=== PATIENT | female | born 1960 | race Caucasian/White ===

== ENCOUNTER 2017-06-18 00:08 | Inpatient (IN) | payer BC, MEDICARE ==
[~2017-06-18] VITALS: Ht 162.6 cm; Wt 50.3 kg
[~2017-06-18 00:08] MED LIST: ALEN70; ASCO250CH PO; AZIT250 PO; CALCA500CH PO; CALCAVITDA PO; CARB50; CEFD300 PO; CEPH500 PO; CIPR250 PO; DARIFENACIN 15 MG; DARIFENACIN 7.5 MG; ENABLEX PO; FAMO20; GABA100; GABA100 PO; GABA400 PO; HYDSUL200; IRON150C PO; LEVFLO250 PO; LEVSOD25 PO; LEVSOD50 PO; MELO7.5; MELO7.5 PO; METTREX2.5; METTREX2.5 PO; MIRT30 PO; MULVITMIND; MULVITMIND PO; NITR100; NITR100 PO; OMEPRAZOLE MAGN20 MG PO; OXYB5; OXYC10ER PO; OXYC20ER; OXYC20ER PO; OXYC5 PO; PANT40 PO; STOMUL; VITAMIN D
[2017-06-18 00:30] LABS: Source, Urine Clean Catch
[2017-06-18] MEDS ORDERED: CEPH250A PO (00:32)
[2017-06-18 00:33] LABS: Bilirubin, Urine Neg (Neg); Blood, Urine 5+ (Neg); Glucose Qualitative, Urine Neg (Neg); Ketones, Urine Neg (Neg); Leukocyte Esterase, Urine 3+ (Neg); Nitrite, Urine Neg (Neg); Protein, Urine 2+ (Neg); Urobilinogen, Urine NORM (Normal)
[2017-06-18] MEDS ORDERED: DARIFENACIN ER7.5 MG PO (00:36)
[2017-06-18 00:38] LABS: Appearance, Urine Cloudy (Clear); Color, Urine Yellow (P-Yellow)
[2017-06-18 00:39] LABS: Bacteria Many /hpf; Squamous Epithelial Cells Few /hpf (Few); White Blood Cells, Urine TNTC /hpf (0-5)
[2017-06-18 01:07] LABS: BASOPHILS ABSOLUTE AUTO 0.02 K/mm3 (0.00-0.23); BASOPHILS PERCENT AUTO 0 % (0-2); EOSINOPHILS PERCENT AUTO 0 % (0-6); Hematocrit 38.4 % (33.0-51.0); Hemoglobin 12.4 g/dL (11.5-16.0); IMMATURE GRAN ABSOLUTE AUTO 0.08 K/mm3 (0.00-0.10); IMMATURE GRAN PERCENT AUTO 1 % (0-1); LYMPHOCYTES ABSOLUTE AUTO 0.28 K/mm3 (0.84-5.20); LYMPHOCYTES PERCENT AUTO 2 % (21-46); MONOCYTES PERCENT AUTO 5 % (4-13); Mean Corpuscular HGB 31.2 pg (26.0-34.0); Mean Corpuscular HGB Conc 32.3 g/dL (31.5-36.5); Mean Corpuscular Volume 97 fL (80-100); Mean Platelet Volume 11.7 fL (9.1-12.4); NEUTROPHILS ABSOLUTE AUTO 14.83 K/mm3 (1.96-9.15); NEUTROPHILS PERCENT AUTO 93 % (41-73); Platelet Count 154 K/mm3 (150-400); RDW Coefficient Variation 13.4 % (11.7-14.2); RDW Standard Deviation 47.6 fL (35.1-46.3); Red Blood Cell Count 3.98 M/mm3 (3.80-5.20); White Blood Cell Count 16.01 K/mm3 (4.00-11.30)
[2017-06-18 01:25] LABS: Albumin, Blood 2.9 g/dL (3.4-5.0); Albumin/Globulin Ratio 0.7 (0.8-1.8); Bilirubin, Total 0.6 mg/dL (0.1-1.0); Bun/Creatinine Ratio 21.3 (12.0-20.0); Calcium, Blood 8.6 mg/dL (8.5-10.1); Creatinine, Blood 1.55 mg/dL (0.40-1.00); Globulin, Blood 4.2 g/dL (2.2-4.0); Potassium, Blood 4.4 mmol/L (3.5-5.5); Total Protein, Blood 7.1 g/dL (6.4-8.2)
[2017-06-18] MEDS ORDERED: OXYC5 PO (03:32)
[2017-06-18] MEDS ORDERED: ASCO500 PO (03:33)
[2017-06-18] MEDS ORDERED: CHOL10002 PO (03:34)
[2017-06-18] MEDS ORDERED: BONE ESSENT166.75 MG PO (03:36)
[2017-06-18] MEDS ORDERED: Multivitamin1 EAC1 PO (03:38)
[2017-06-18 04:58] LABS: BASOPHILS ABSOLUTE AUTO 0.03 K/mm3 (0.00-0.23); BASOPHILS PERCENT AUTO 0 % (0-2); EOSINOPHILS PERCENT AUTO 0 % (0-6); Hematocrit 35.4 % (33.0-51.0); Hemoglobin 11.2 g/dL (11.5-16.0); IMMATURE GRAN ABSOLUTE AUTO 0.06 K/mm3 (0.00-0.10); IMMATURE GRAN PERCENT AUTO 1 % (0-1); LYMPHOCYTES ABSOLUTE AUTO 0.34 K/mm3 (0.84-5.20); LYMPHOCYTES PERCENT AUTO 3 % (21-46); MONOCYTES ABSOLUTE AUTO 0.73 K/mm3 (0.16-1.47); MONOCYTES PERCENT AUTO 6 % (4-13); Mean Corpuscular HGB 31.2 pg (26.0-34.0); Mean Corpuscular HGB Conc 31.6 g/dL (31.5-36.5); Mean Corpuscular Volume 99 fL (80-100); Mean Platelet Volume 11.9 fL (9.1-12.4); NEUTROPHILS PERCENT AUTO 91 % (41-73); Platelet Count 125 K/mm3 (150-400); RDW Coefficient Variation 13.6 % (11.7-14.2); RDW Standard Deviation 48.7 fL (35.1-46.3); Red Blood Cell Count 3.59 M/mm3 (3.80-5.20); White Blood Cell Count 12.86 K/mm3 (4.00-11.30)
[2017-06-18 05:17] LABS: Bun/Creatinine Ratio 19.6 (12.0-20.0); Calcium, Blood 7.7 mg/dL (8.5-10.1); Creatinine, Blood 1.53 mg/dL (0.40-1.00); Potassium, Blood 4.3 mmol/L (3.5-5.5)
[2017-06-20 04:20] LABS: Hematocrit 31.6 % (33.0-51.0); Hemoglobin 9.8 g/dL (11.5-16.0); Mean Corpuscular HGB 30.9 pg (26.0-34.0); Mean Corpuscular Volume 100 fL (80-100); Mean Platelet Volume 12.3 fL (9.1-12.4); Platelet Count 79 K/mm3 (150-400); RDW Coefficient Variation 14.6 % (11.7-14.2); RDW Standard Deviation 52.9 fL (35.1-46.3); Red Blood Cell Count 3.17 M/mm3 (3.80-5.20); White Blood Cell Count 7.37 K/mm3 (4.00-11.30)
[2017-06-20 04:40] LABS: Bun/Creatinine Ratio 18.5 (12.0-20.0); Calcium, Blood 6.2 mg/dL (8.5-10.1); Creatinine, Blood 1.19 mg/dL (0.40-1.00); Potassium, Blood 4.2 mmol/L (3.5-5.5)
[2017-06-21 12:48] LABS: BASOPHILS ABSOLUTE AUTO 0.01 K/mm3 (0.00-0.23); BASOPHILS PERCENT AUTO 0 % (0-2); EOSINOPHILS ABSOLUTE AUTO 0.03 K/mm3 (0.00-0.68); EOSINOPHILS PERCENT AUTO 0 % (0-6); Hematocrit 31.9 % (33.0-51.0); Hemoglobin 9.9 g/dL (11.5-16.0); IMMATURE GRAN ABSOLUTE AUTO 0.04 K/mm3 (0.00-0.10); IMMATURE GRAN PERCENT AUTO 1 % (0-1); LYMPHOCYTES ABSOLUTE AUTO 0.25 K/mm3 (0.84-5.20); LYMPHOCYTES PERCENT AUTO 4 % (21-46); MONOCYTES ABSOLUTE AUTO 0.34 K/mm3 (0.16-1.47); MONOCYTES PERCENT AUTO 5 % (4-13); Mean Corpuscular HGB 31.5 pg (26.0-34.0); Mean Corpuscular Volume 102 fL (80-100); NEUTROPHILS ABSOLUTE AUTO 6.28 K/mm3 (1.96-9.15); NEUTROPHILS PERCENT AUTO 90 % (41-73); Platelet Count 86 K/mm3 (150-400); RDW Coefficient Variation 15.4 % (11.7-14.2); RDW Standard Deviation 56.4 fL (35.1-46.3); Red Blood Cell Count 3.14 M/mm3 (3.80-5.20); White Blood Cell Count 6.95 K/mm3 (4.00-11.30)
[2017-06-21 13:28] LABS: Bun/Creatinine Ratio 14.7 (12.0-20.0); Calcium, Blood 7.4 mg/dL (8.5-10.1); Creatinine, Blood 1.29 mg/dL (0.40-1.00)
[2017-06-22] MEDS ORDERED: CEFU500T30 PO (13:07)
== END 2017-06-22 15:18 | disposition home or self-care (01) | DRG 698 ==
LOC: ER 00:08 → ICUE 02:20 → ICUW 02:20 → PCU 02:20 → ICUE 02:44 → PCU 06-19 11:56
PROVIDERS: Emergency Medicine; Family Medicine; Internal Medicine; Physician Assistant
DX: T83.511A Infection and inflammatory reaction due to indwelling urethral catheter, initial encounter (principal); A41.9 Sepsis, unspecified organism; G82.50 Quadriplegia, unspecified; G93.40 Encephalopathy, unspecified; N17.9 Acute kidney failure, unspecified; N39.0 Urinary tract infection, site not specified; B96.4 Proteus (mirabilis) (morganii) as the cause of diseases classified elsewhere; M06.9 Rheumatoid arthritis, unspecified; Z88.1 Allergy status to other antibiotic agents; Z88.5 Allergy status to narcotic agent; Z88.0 Allergy status to penicillin; Z88.2 Allergy status to sulfonamides; Z88.8 Allergy status to other drugs, medicaments and biological substances; Z79.899 Other long term (current) drug therapy
CPT/HCPCS: 31720; 36415; 51702; 71045; 80048; 80053; 81001; 83605; 85025; 85027; 87040; 87077; 87081; 87086; 87186; 93005; 93010; 94762; 96360; 99285; J0610; J0696; J1650; J7030; J8610

== ENCOUNTER → 2017-06-29 | Outpatient (CLI) | payer BC ==
[~2017-06-29] MED LIST changes: +ASCO500 PO; +BONE ESSENT166.75 MG PO; +CEFU500T30 PO; +CEPH250A PO; +CHOL10002 PO; +DARIFENACIN ER7.5 MG PO; +Multivitamin1 EAC1 PO
[2017-06-29 11:22] LABS: Source, Urine Clean Catch
[2017-06-29 13:45] LABS: Bilirubin, Urine Neg (Neg); Blood, Urine 4+ (Neg); Glucose Qualitative, Urine Neg (Neg); Ketones, Urine Neg (Neg); Leukocyte Esterase, Urine 3+ (Neg); Nitrite, Urine Neg (Neg); Protein, Urine 1+ (Neg); Urobilinogen, Urine NORM (Normal)
[2017-06-29 14:10] LABS: Appearance, Urine Hazy (Clear); Color, Urine Yellow (P-Yellow)
[2017-06-29 14:11] LABS: Bacteria Many /hpf; Squamous Epithelial Cells Few /hpf (Few); White Blood Cells, Urine 50-100 /hpf (0-5)
== END | disposition home or self-care (01) ==
LOC: LAB SHORT 10:08 → LAB 10:08 → EDSTATUS 06-18 10:50 → LAB FUT 06-18 10:50
PROVIDERS: Internal Medicine
DX: N39.0 Urinary tract infection, site not specified (principal)
CPT/HCPCS: 81001; 87077; 87086; 87186

== ENCOUNTER → 2017-07-14 | Outpatient (CLI) | payer BC ==
[2017-07-14 13:34] LABS: Appearance, Urine Hazy (Clear); Bilirubin, Urine Neg (Neg); Blood, Urine 2+ (Neg); Color, Urine Yellow (P-Yellow); Glucose Qualitative, Urine Neg (Neg); Ketones, Urine Neg (Neg); Leukocyte Esterase, Urine 3+ (Neg); Nitrite, Urine Neg (Neg); Protein, Urine 2+ (Neg); Urobilinogen, Urine NORM (Normal); pH, Urine 6.5 (5.0-8.0)
[2017-07-14 13:51] LABS: Bacteria Mod /hpf; Squamous Epithelial Cells Rare /hpf (Few); White Blood Cells, Urine TNTC /hpf (0-5)
== END ==
LOC: LAB 11:16 → LAB SHORT 11:16
PROVIDERS: Internal Medicine
DX: N39.0 Urinary tract infection, site not specified (principal)
CPT/HCPCS: 81001; 87086

== ENCOUNTER → 2017-09-15 | Outpatient (CLI) | payer BC ==
[2017-09-15 17:39] LABS: Appearance, Urine Hazy (Clear); Bilirubin, Urine Neg (Neg); Blood, Urine 3+ (Neg); Color, Urine Yellow (P-Yellow); Glucose Qualitative, Urine Neg (Neg); Ketones, Urine Neg (Neg); Leukocyte Esterase, Urine 3+ (Neg); Nitrite, Urine Neg (Neg); Protein, Urine 2+ (Neg); Urobilinogen, Urine NORM (Normal)
[2017-09-15 18:19] LABS: Red Blood Cells, Urine 50-100 /hpf (0-2); White Blood Cells, Urine 50-100 /hpf (0-5)
[2017-09-15 18:20] LABS: Bacteria Mod /hpf; Squamous Epithelial Cells Not Seen /hpf (Few)
== END | disposition home or self-care (01) ==
LOC: LAB SRC 13:44 → LAB SHORT 13:44
PROVIDERS: Internal Medicine
DX: N39.0 Urinary tract infection, site not specified (principal)
CPT/HCPCS: 81001; 87077; 87086; 87186

== ENCOUNTER 2017-09-23 07:13 | Day surgery (SDC) | payer BC ==
[~2017-09-23] VITALS: Ht 165.1 cm; Wt 45.4 kg
== END 2017-09-23 22:43 | disposition home or self-care (01) ==
LOC: ORSCMMR 07:13 → ORD 09:00 → ORSCMMR 09:00 → ORD 10:00 → ORSCMMR 22:43
PROVIDERS: Obstetrics & Gynecology
PROC: 0UB24ZZ Excision of Bilateral Ovaries, Percutaneous Endoscopic Approach (ICD-10-PCS; principal; 2017-09-23 10:30)
PROC: 0UB74ZZ Excision of Bilateral Fallopian Tubes, Percutaneous Endoscopic Approach (ICD-10-PCS; principal; 2017-09-23 10:30)
DX: Z15.01 Genetic susceptibility to malignant neoplasm of breast (principal); Z12.4 Encounter for screening for malignant neoplasm of cervix; G82.50 Quadriplegia, unspecified; Z93.0 Tracheostomy status; Z79.899 Other long term (current) drug therapy
CPT/HCPCS: 87624; 88305; G0123; J1100; J2250; J2310; J2405; J3010; J7120

== ENCOUNTER → 2017-11-10 | Outpatient (CLI) | payer BC ==
[2017-11-10 17:35] LABS: Appearance, Urine Hazy (Clear); Bilirubin, Urine Neg (Neg); Blood, Urine 5+ (Neg); Color, Urine Yellow (P-Yellow); Glucose Qualitative, Urine Neg (Neg); Ketones, Urine Neg (Neg); Leukocyte Esterase, Urine 3+ (Neg); Nitrite, Urine Neg (Neg); Protein, Urine 2+ (Neg); Specific Gravity, Urine 1.005 (1.003-1.022); Urobilinogen, Urine NORM (Normal)
[2017-11-10 17:46] LABS: White Blood Cells, Urine TNTC /hpf (0-5)
[2017-11-10 17:48] LABS: Bacteria Many /hpf; Red Blood Cells, Urine 25-50 /hpf (0-2); Squamous Epithelial Cells Few /hpf (Few)
== END | disposition home or self-care (01) ==
LOC: LAB SHORT 13:59 → LAB SRC 13:59
PROVIDERS: Internal Medicine
DX: N39.0 Urinary tract infection, site not specified (principal)
CPT/HCPCS: 81001; 87077; 87086; 87186

== ENCOUNTER → 2017-12-27 | Outpatient (CLI) | payer BC ==
[2017-12-27 15:29] LABS: Source, Urine Clean Catch
[2017-12-27 17:22] LABS: Bilirubin, Urine Neg (Neg); Blood, Urine 2+ (Neg); Glucose Qualitative, Urine Neg (Neg); Ketones, Urine Neg (Neg); Leukocyte Esterase, Urine 3+ (Neg); Nitrite, Urine Pos (Neg); Protein, Urine 2+ (Neg); Urobilinogen, Urine NORM (Normal)
[2017-12-27 17:49] LABS: Appearance, Urine Cloudy (Clear); Color, Urine Yellow (P-Yellow)
[2017-12-27 17:50] LABS: White Blood Cells, Urine TNTC /hpf (0-5)
[2017-12-27 17:51] LABS: Bacteria Many /hpf; Squamous Epithelial Cells Not Seen /hpf (Few)
== END | disposition home or self-care (01) ==
LOC: LAB SRC 15:26 → LAB SHORT 15:26
PROVIDERS: Internal Medicine
DX: N39.0 Urinary tract infection, site not specified (principal)
CPT/HCPCS: 81001; 87077; 87086; 87186

== ENCOUNTER → 2018-02-01 | Outpatient (CLI) | payer BC ==
[2018-02-01 17:51] LABS: Appearance, Urine Cloudy (Clear); Bilirubin, Urine Neg (Neg); Blood, Urine 4+ (Neg); Color, Urine Yellow (P-Yellow); Glucose Qualitative, Urine Neg (Neg); Ketones, Urine Neg (Neg); Leukocyte Esterase, Urine 3+ (Neg); Nitrite, Urine Pos (Neg); Protein, Urine 2+ (Neg); Specific Gravity, Urine 1.015 (1.003-1.022); Urobilinogen, Urine NORM (Normal)
[2018-02-01 18:47] LABS: Triple Phosphate Crystals Few /hpf; White Blood Cells, Urine TNTC /hpf (0-5)
[2018-02-01 18:48] LABS: Red Blood Cells, Urine 25-50 /hpf (0-2)
[2018-02-01 18:50] LABS: Bacteria Many /hpf; Squamous Epithelial Cells Rare /hpf (Few)
== END | disposition home or self-care (01) ==
LOC: LAB SRC 13:01 → LAB SHORT 13:01 → LAB FUT 01-31 16:45 → EDSTATUS 01-31 16:45
PROVIDERS: Internal Medicine
DX: N39.0 Urinary tract infection, site not specified (principal)
CPT/HCPCS: 81001; 87077; 87086; 87186

== ENCOUNTER → 2018-03-05 | Outpatient (CLI) | payer BC ==
[2018-03-12 07:12] LABS: BRUSHITE 1.84 ratio (0.00-3.00); CALCIUM OXALATE 4.78 ratio (0.00-6.00); CALCIUM, URINE 35.2 mg/24 hr (100.0-300.0); CALCIUM, URINE 4.4 mg/dL (Not Estab.); CHLORIDE URINE 34 (110-250); CITRIC ACID (CITRATE) 291 mg/L (Not Estab.); CITRIC ACID(CITRATE) 233 mg/24 hr (320-1240); CREATININE, URINE 353.6 mg/24 hr (800.0-1800.0); CREATININE, URINE 44.2 mg/dL (Not Estab.); MAGNESIUM, URINE 10.2 mg/dL (Not Estab.); OSMOLALITY, URINE 400 (300-900); SODIUM, URINE 68 (39-258); SODIUM, URINE 85 mmol/L (Not Estab.); STRUVITE 0.17 ratio (0.00-1.00); URIC ACID 0.14 ratio (0.00-1.20); URINE VOLUME 800 mL/24 hr (600-1600); URINE VOLUME (PRESERVATIVE) 800 mL/24 hr (600-1600)
== END | disposition home or self-care (01) ==
LOC: LAB 05:00 → LAB SHORT 05:00
PROVIDERS: Urology
DX: N20.0 Calculus of kidney (principal)
CPT/HCPCS: 81003; 81050; 82131; 82140; 82340; 82436; 82507; 82570; 83735; 83935; 83945; 84105; 84133; 84300; 84392; 84560

== ENCOUNTER → 2018-05-31 | Outpatient (CLI) | payer BC ==
[2018-05-31 18:16] LABS: Bilirubin, Urine Neg (Neg); Blood, Urine 2+ (Neg); Glucose Qualitative, Urine Neg (Neg); Ketones, Urine Neg (Neg); Leukocyte Esterase, Urine 3+ (Neg); Nitrite, Urine Neg (Neg); Protein, Urine 2+ (Neg); Urobilinogen, Urine NORM (Normal)
[2018-05-31 18:35] LABS: Appearance, Urine Hazy (Clear); Color, Urine Yellow (P-Yellow)
[2018-05-31 18:36] LABS: Bacteria Many /hpf; Squamous Epithelial Cells Not Seen /hpf (Few); White Blood Cells, Urine TNTC /hpf (0-5)
== END | disposition home or self-care (01) ==
LOC: LAB SRC 13:03 → LAB SHORT 13:03 → EDSTATUS 05-30 12:15 → LAB FUT 05-30 12:15
PROVIDERS: Internal Medicine
DX: N39.0 Urinary tract infection, site not specified (principal)
CPT/HCPCS: 81001; 87077; 87086; 87186

== ENCOUNTER 2018-07-14 10:10 | Day surgery (SDC) | payer BC ==
[~2018-07-14] VITALS: Ht 165.1 cm; Wt 45.4 kg
[~2018-07-14 10:10] MED LIST changes: +Mobic15 MG PO
--- NOTE | 2018-07-14 12:23 | NUR ---
07/14/18 1223 Kady Nelson PT REFUSES FLUIDS.
== END 2018-07-14 12:56 | disposition home or self-care (01) ==
LOC: ORSCSDS 10:10
PROVIDERS: Internal Medicine Gastroenterology
PROC: 0DJD8ZZ Inspection of Lower Intestinal Tract, Via Natural or Artificial Opening Endoscopic (ICD-10-PCS; principal; 2018-07-14 11:30)
DX: Z12.11 Encounter for screening for malignant neoplasm of colon (principal); Z80.0 Family history of malignant neoplasm of digestive organs; E03.9 Hypothyroidism, unspecified; G82.53 Quadriplegia, C5-C7 complete; J47.9 Bronchiectasis, uncomplicated; M06.9 Rheumatoid arthritis, unspecified; Z79.899 Other long term (current) drug therapy
CPT/HCPCS: J2704; J7120

== ENCOUNTER 2019-03-04 12:39 | Inpatient (IN) | payer BC, MEDICARE ==
[~2019-03-04] VITALS: Ht 147.3 cm; Wt 48.5 kg
[2019-03-04 13:46] LABS: BASOPHILS ABSOLUTE AUTO 0.03 K/mm3 (0.00-0.23); BASOPHILS PERCENT AUTO 0 % (0-2); EOSINOPHILS ABSOLUTE AUTO 0.21 K/mm3 (0.00-0.68); EOSINOPHILS PERCENT AUTO 3 % (0-6); Hematocrit 35.4 % (33.0-51.0); IMMATURE GRAN ABSOLUTE AUTO 0.03 K/mm3 (0.00-0.10); IMMATURE GRAN PERCENT AUTO 0 % (0-1); LYMPHOCYTES ABSOLUTE AUTO 0.56 K/mm3 (0.84-5.20); LYMPHOCYTES PERCENT AUTO 8 % (21-46); MONOCYTES ABSOLUTE AUTO 0.21 K/mm3 (0.16-1.47); MONOCYTES PERCENT AUTO 3 % (4-13); Mean Corpuscular HGB 31.9 pg (26.0-34.0); Mean Corpuscular HGB Conc 31.1 g/dL (31.5-36.5); Mean Corpuscular Volume 103 fL (80-100); Mean Platelet Volume 11.7 fL (9.1-12.4); NEUTROPHILS ABSOLUTE AUTO 6.38 K/mm3 (1.96-9.15); NEUTROPHILS PERCENT AUTO 86 % (41-73); Platelet Count 87 K/mm3 (150-400); RDW Coefficient Variation 13.1 % (11.7-14.2); RDW Standard Deviation 48.5 fL (35.1-46.3); Red Blood Cell Count 3.45 M/mm3 (3.80-5.20); White Blood Cell Count 7.42 K/mm3 (4.00-11.30)
[2019-03-04] MEDS ORDERED: Enablex7.5 MG PO (14:10)
[2019-03-04 14:14] LABS: Albumin, Blood 3.1 g/dL (3.4-5.0); Albumin/Globulin Ratio 0.9 (0.8-1.8); Bilirubin, Total 0.5 mg/dL (0.1-1.0); Bun/Creatinine Ratio 18.3 (12.0-20.0); Calcium, Blood 16.2 mg/dL (8.5-10.1); Creatinine, Blood 2.73 mg/dL (0.40-1.00); Globulin, Blood 3.3 g/dL (2.2-4.0); Potassium, Blood 4.3 mmol/L (3.5-5.5); Total Protein, Blood 6.4 g/dL (6.4-8.2)
[2019-03-04 16:33] LABS: Phosphorus, Blood 2.1 mg/dL (2.5-4.9); Thyroid Stimulating Hormone 1.29 uIU/mL (0.360-4.800); Uric Acid, Blood 5.2 mg/dL (2.6-6.0)
[2019-03-04 18:19] LABS: Albumin, Blood 1.7 g/dL (3.4-5.0); Anion Gap 6 mmol/L (6-16); Blood Urea Nitrogen 34 mg/dL (8-24); CO2, Blood 22 mmol/L (21-32); Chloride, Blood 120 mmol/L (98-108); Glomerular Filtration Rate 33 (60-); Glucose, Blood 63 mg/dL (70-99); Phosphorus, Blood 2.2 mg/dL (2.5-4.9); Potassium, Blood 2.8 mmol/L (3.5-5.5); Sodium, Blood 148 mmol/L (136-145)
[2019-03-04 18:26] LABS: Source, Urine Catheter
[2019-03-04 18:31] LABS: Appearance, Urine Hazy (Clear); Bilirubin, Urine Neg (Neg); Blood, Urine 1+ (Neg); Color, Urine Yellow (P-Yellow); Glucose Qualitative, Urine Neg (Neg); Ketones, Urine Neg (Neg); Leukocyte Esterase, Urine 3+ (Neg); Nitrite, Urine Neg (Neg); Protein, Urine 1+ (Neg); Urobilinogen, Urine NORM (Normal)
[2019-03-04 18:54] LABS: White Blood Cells, Urine 50-100 /hpf (0-5)
[2019-03-04 18:55] LABS: Bacteria Many /hpf; Squamous Epithelial Cells Few /hpf (Few)
[2019-03-04 19:51] LABS: Calcium, Blood 8.7 mg/dL (8.5-10.1)
--- NOTE | 2019-03-04 22:46 | NUR ---
ASSUMED CARE OF PATIENT AT APPROXIMATELY 1915 FROM KRIS Kulkarni RN. PATIENT ALERT AND ORIENTED X4; SLOW TO RESPOND; PARAPALEGIC; CONTRACTED; Q2H TURNS; CHAIRFAST. PATIENT REPORTS CHRONIC PAIN; CALLED DR. MCDUFFIE THREE TIMES TO REPORTS PATIENT AND PATIENT'S SPOUSE REQUEST FOR HOME DOSE OF OXYCODONE. PATIENT TAKES REPORTEDLY 20MG OF OXYCODONE Q8; 5MG OF OXCODONE ORDERED Q4; ORDERS RECIEVED. PATIENT TAKES PILLS WHOLE WITH WATER. TRACH IN PLACE; PATIENT SPOUSE DOES TRACH CARE. NSR ON TELE; OXYGEN SATURATION ABOVE 90% ON ROOM AIR. URINARY CATHETER DRAINING CLEAR YELLOW URINE. IVF INFUSING PER ORDER. PATIENT DENIES NAUSEA OR DIZZINESS. GROSS MOVEMENT IN UPPER EXTREMITIES. PATIENT CURRENTLY RESTING IN BED; CALL LIGHT IN REACH; BED IN LOWEST POSISTION; WILL CONTINUE TO MONITOR AND ASSESS UNTIL END OF SHIFT.
--- NOTE | 2019-03-04 23:20 | NUR ---
PATIENT SBP 80'S; MAP 65; PATIENT REPORTS BLOOD PRESSURE NORMALLY IN 80-90'S SBP. WILL CONTINUE TO MONITOR AND ASSESS UNTIL END OF SHIFT.
--- NOTE | 2019-03-04 23:46 | NUR ---
PATIENT TRANSFERRED FROM [facility] TO [facility] ROOM WITH A LIFT; PATIENT MOVED FROM STRETCHER TO AIR MATTRESS; ALL BELONGINGS MOVED. PATIENT'S SPOUSE IN ROOM DURING MOVE.
[2019-03-05 04:05] LABS: BASOPHILS ABSOLUTE AUTO 0.02 K/mm3 (0.00-0.23); BASOPHILS PERCENT AUTO 1 % (0-2); EOSINOPHILS ABSOLUTE AUTO 0.21 K/mm3 (0.00-0.68); EOSINOPHILS PERCENT AUTO 5 % (0-6); Hematocrit 29.9 % (33.0-51.0); Hemoglobin 9.5 g/dL (11.5-16.0); IMMATURE GRAN ABSOLUTE AUTO 0.01 K/mm3 (0.00-0.10); IMMATURE GRAN PERCENT AUTO 0 % (0-1); LYMPHOCYTES ABSOLUTE AUTO 0.46 K/mm3 (0.84-5.20); LYMPHOCYTES PERCENT AUTO 12 % (21-46); MONOCYTES ABSOLUTE AUTO 0.19 K/mm3 (0.16-1.47); MONOCYTES PERCENT AUTO 5 % (4-13); Mean Corpuscular HGB 32.5 pg (26.0-34.0); Mean Corpuscular HGB Conc 31.8 g/dL (31.5-36.5); Mean Corpuscular Volume 102 fL (80-100); Mean Platelet Volume 12.4 fL (9.1-12.4); NEUTROPHILS PERCENT AUTO 78 % (41-73); Platelet Count 59 K/mm3 (150-400); RDW Coefficient Variation 12.9 % (11.7-14.2); RDW Standard Deviation 48.3 fL (35.1-46.3); Red Blood Cell Count 2.92 M/mm3 (3.80-5.20); White Blood Cell Count 3.99 K/mm3 (4.00-11.30)
[2019-03-05 04:21] LABS: Magnesium, Blood 2.8 mg/dL (1.6-2.4)
[2019-03-05 04:37] LABS: Albumin, Blood 2.5 g/dL (3.4-5.0); Anion Gap 3 mmol/L (6-16); Blood Urea Nitrogen 47 mg/dL (8-24); Bun/Creatinine Ratio 17.9 (12.0-20.0); CO2, Blood 34 mmol/L (21-32); Chloride, Blood 103 mmol/L (98-108); Creatinine, Blood 2.62 mg/dL (0.40-1.00); Glomerular Filtration Rate 20 (60-); Glucose, Blood 89 mg/dL (70-99); Potassium, Blood 3.6 mmol/L (3.5-5.5); Sodium, Blood 140 mmol/L (136-145)
[2019-03-05 04:39] LABS: Calcium, Blood 13.1 mg/dL (8.5-10.1)
--- NOTE | 2019-03-05 06:05 | NUR ---
NO ACUTE CHANGES TO REPORT. PATIENT SLEPT ABOUT SEVEN HOURS LAST NIGHT. VSS. WILL CONTINUE TO MONITOR AND ASSESS UNTIL END OF SHIFT.
--- NOTE | 2019-03-05 07:45 | NUR ---
AM NOTE. ASSUMED CARE OF PT APROX 0700, PT IS A&Ox4 AND WAS ADMITTED FOR CARLITO/UTI. PT'S VS STABLE AT THIS TIME. PT DENIES ANY PAIN AT THIS TIME WELL. PT IS IN NSR IN THE 70'S-80'S PER RING MAKER. NO EDEMA IS NOTED ON ASSESSMENT. L/S CLEAR IN THE UPPER R&L AND R MID LOBE, VERY DIM IN THE R LOWER LOBE. LEFT LOWER LOBE HAD SOME FINE CRACKLES. PT IS ON 2 L NC AT 94%, PT STATES SHE USES 1-3L NC PRN AND AT NIGHT. TRACH COLLAR/DRESSING IS PATENT AND C/D/I. CALL LIGHT IN REACH, WILL CONTINUE TO MONITOR.
--- NOTE | 2019-03-05 15:10 | NUR ---
PT UPDATE... NEPHROLOGY PROVIDER IN THE ROOM, ORDERS OBTAINED FOR 24HR URINE COLLECTION, THIS STARTED AT 1400 TODAY.
--- NOTE | 2019-03-05 17:44 | NUR ---
SHIFT SUMMARY. NO ACUTE NEGATIVE CHANGES NOTED THIS SHIFT. PT'S VS HAVE BEEN STABLE. PT HAS BEEN TURNED Q2 HRS AND PRN. PT'S MAYO IS PATENT AND DRAINING CLEAR YELLOW URINE TO GRAVITY. 24HR URINE COLLECTION WILL END ON 03/06 AT 1400. PT DENIES PAIN AT THIS TIME. PT'S HAS BEEN AT THE BEDSIDE OFF AND ON T/O THE DAY HELPING WITH MEALS AND TURNS. CALL LIGHT IN REACH, BED IS LOCKED AND LOW WILL CONTINUE TO MONITOR UNTIL REPORT IS GIVEN TO ONCOMING RN.
--- NOTE | 2019-03-05 21:42 | NUR ---
ASSUMED CARE OF PATIENT AT APPROXIMATELY 1905 FROM SVETLANA Alston RN. PATIENT ALERT AND ORIENTED X4; PARAPALEGIC; CONTRACTED; Q2H TURNS; USES ELECTRONIC W/C AT BASELINE. PATIENT REPORTS CHRONIC PAIN; MEDICATED PER EMAR; PATIENT TAKES PILLS WHOLE WITH WATER. TRACH IN PLACE; PATIENT SPOUSE DOES TRACH CARE. NSR ON TELE; OXYGEN SATURATION ABOVE 90% ON ROOM AIR. URINARY CATHETER DRAINING CLEAR YELLOW URINE; 24HR URINE IN PLACE. IVF INFUSING PER ORDER. PATIENT DENIES NAUSEA OR DIZZINESS. GROSS MOVEMENT IN UPPER EXTREMITIES. PATIENT SPOUSE ASSISTED PATIENT IN BM TONIGHT. PATIENT CURRENTLY RESTING IN BED; CALL LIGHT IN REACH; BED IN LOWEST POSISTION; WILL CONTINUE TO MONITOR AND ASSESS UNTIL END OF SHIFT.
[2019-03-06 03:57] LABS: BASOPHILS ABSOLUTE AUTO 0.02 K/mm3 (0.00-0.23); BASOPHILS PERCENT AUTO 1 % (0-2); EOSINOPHILS ABSOLUTE AUTO 0.06 K/mm3 (0.00-0.68); EOSINOPHILS PERCENT AUTO 1 % (0-6); Hematocrit 31.8 % (33.0-51.0); Hemoglobin 10.2 g/dL (11.5-16.0); IMMATURE GRAN ABSOLUTE AUTO 0.02 K/mm3 (0.00-0.10); IMMATURE GRAN PERCENT AUTO 1 % (0-1); LYMPHOCYTES ABSOLUTE AUTO 0.24 K/mm3 (0.84-5.20); LYMPHOCYTES PERCENT AUTO 6 % (21-46); MONOCYTES ABSOLUTE AUTO 0.16 K/mm3 (0.16-1.47); MONOCYTES PERCENT AUTO 4 % (4-13); Mean Corpuscular HGB 32.2 pg (26.0-34.0); Mean Corpuscular HGB Conc 32.1 g/dL (31.5-36.5); Mean Corpuscular Volume 100 fL (80-100); NEUTROPHILS ABSOLUTE AUTO 3.82 K/mm3 (1.96-9.15); NEUTROPHILS PERCENT AUTO 88 % (41-73); Platelet Count 54 K/mm3 (150-400); RDW Coefficient Variation 13.1 % (11.7-14.2); RDW Standard Deviation 47.3 fL (35.1-46.3); Red Blood Cell Count 3.17 M/mm3 (3.80-5.20); White Blood Cell Count 4.32 K/mm3 (4.00-11.30)
[2019-03-06 04:18] LABS: Albumin, Blood 2.7 g/dL (3.4-5.0); Anion Gap 4 mmol/L (6-16); Blood Urea Nitrogen 43 mg/dL (8-24); Bun/Creatinine Ratio 18.4 (12.0-20.0); CO2, Blood 30 mmol/L (21-32); Calcium, Blood 11.6 mg/dL (8.5-10.1); Chloride, Blood 107 mmol/L (98-108); Creatinine, Blood 2.34 mg/dL (0.40-1.00); Glomerular Filtration Rate 23 (60-); Glucose, Blood 185 mg/dL (70-99); Magnesium, Blood 2.4 mg/dL (1.6-2.4); Phosphorus, Blood 2.8 mg/dL (2.5-4.9); Potassium, Blood 4.1 mmol/L (3.5-5.5); Sodium, Blood 141 mmol/L (136-145)
[2019-03-06 04:23] LABS: Cortisol, AM 23.4 ug/dL (6.7-22.6)
--- NOTE | 2019-03-06 05:49 | NUR ---
DR. GONZALES WAS BEDSIDE WITH PATIENT. PATIENT HAS SLEPT ABOUT SEVEN HOURS OFF AND ON. VSS. NO ACUTE CHANGES TO REPORT. WILL CONTINUE TO MONITOR AND ASSESS UNTIL END OF SHIFT.
--- NOTE | 2019-03-06 10:06 | NUR ---
AM NOTE... ASSUMED CARE OF PT APROX 0700. PT IS A&Ox4 PT WAS ADMITTED FOR CARLITO AND WAS FOUND TO HAVE UTI. INFECTIOUS DISEASE CONSULT WAS PLACED THIS AM. PT'S VS STABLE. PT DENIES ANY CHEST PAIN/PRESSURE N/V OR SOB. PT STATES SHE FEELS BETTER THAN "BEFORE." PT IS IN NSR IN THE 80'S-90'S. NO EDEMA IS NOTED ON ASSESSMENT. L/S CLEAR T/O DIM IN THE BASES, PT'S TRACH IS PATENT PT IS ON RA WITH O2 SATS >94%. BT PRESENT AND HYPOACTIVE, ABD IS SLIGHLTY FIRM BUT NONTENDER TO PALP. PT'S MAYO IS PATENT AND DRAINING TO GRAVITY, 24HR URINE COLLECTION IS TO CONTINUE UNTIL 1400 TODAY. CALL LIGHT IN REACH, BED IS LOCKED AND LOW WILL CONTINUE TO MONITOR.
[2019-03-06 15:48] LABS: Protein, Urine Quantitative 19.9 mg/dL (0.0-11.9)
--- NOTE | 2019-03-06 18:07 | NUR ---
SHIFT SUMMARY. NO ACUTE NEGATIVE CHANGES NOTED THIS SHIFT. PT'S MAYO WAS D/C'D PER PROVIDER'S ORDERS, PT IS TO BE STRAIGHT CATHED PRN. PT'S VS HAVE BEEN STABLE. 24HR URINE COLLECTION WAS COMPLETED AT 1400. INFECTIOUS DISEASE PROVIDER WAS AT THE BEDSIDE THIS AFTERNOON. CALL LIGHT IN REACH, BED IS LOCKED AND LOW WILL CONTINUE TO MONITOR UNTIL REPORT IS GIVEN TO ONCOMING RN.
[2019-03-07 04:09] LABS: BASOPHILS ABSOLUTE AUTO 0.01 K/mm3 (0.00-0.23); BASOPHILS PERCENT AUTO 0 % (0-2); EOSINOPHILS ABSOLUTE AUTO 0.18 K/mm3 (0.00-0.68); EOSINOPHILS PERCENT AUTO 4 % (0-6); Hematocrit 29.5 % (33.0-51.0); Hemoglobin 9.6 g/dL (11.5-16.0); IMMATURE GRAN ABSOLUTE AUTO 0.06 K/mm3 (0.00-0.10); IMMATURE GRAN PERCENT AUTO 1 % (0-1); LYMPHOCYTES ABSOLUTE AUTO 0.43 K/mm3 (0.84-5.20); LYMPHOCYTES PERCENT AUTO 8 % (21-46); MONOCYTES ABSOLUTE AUTO 0.32 K/mm3 (0.16-1.47); MONOCYTES PERCENT AUTO 6 % (4-13); Mean Corpuscular HGB 32.7 pg (26.0-34.0); Mean Corpuscular HGB Conc 32.5 g/dL (31.5-36.5); Mean Corpuscular Volume 100 fL (80-100); Mean Platelet Volume 11.8 fL (9.1-12.4); NEUTROPHILS PERCENT AUTO 81 % (41-73); Platelet Count 58 K/mm3 (150-400); RDW Coefficient Variation 13.3 % (11.7-14.2); RDW Standard Deviation 48.3 fL (35.1-46.3); Red Blood Cell Count 2.94 M/mm3 (3.80-5.20)
[2019-03-07 04:31] LABS: Albumin, Blood 2.6 g/dL (3.4-5.0); Anion Gap 4 mmol/L (6-16); Blood Urea Nitrogen 35 mg/dL (8-24); Bun/Creatinine Ratio 17.4 (12.0-20.0); CO2, Blood 28 mmol/L (21-32); Chloride, Blood 110 mmol/L (98-108); Creatinine, Blood 2.01 mg/dL (0.40-1.00); Glomerular Filtration Rate 27 (60-); Glucose, Blood 106 mg/dL (70-99); Magnesium, Blood 2.2 mg/dL (1.6-2.4); Phosphorus, Blood 2.5 mg/dL (2.5-4.9); Potassium, Blood 3.6 mmol/L (3.5-5.5); Sodium, Blood 142 mmol/L (136-145)
--- NOTE | 2019-03-07 06:40 | NUR ---
SHIFT SUMMARY PT HAS REMAINED AOX4 THROUGHOUT SHIFT. VSS. PLEASANT AND COOPERATIVE WITH CARE. PT REMAINS AT BASELINE MUSCULOSKELETAL FUNCITONALITY THROUGHOUT THE SHIFT. LUNG SOUNDS REMAIN CLEAR IN UPPER LOBES, DIMINISHED IN THE BASES. TRACH REMAINS ON RA THROUHGOUT THE NIGHT. PT REPORTS THAT SHE WILL OCCASIONALLY WEAR 2L VIA NASAL CANNULA WHILE SLEEPING PRN AT HOME. HAS NOT REQUESTED O2 THROUGHOUT THE NIGHT. STRAIGHT CATHETERIZED MULTIPLE TIMES THROUGHOUT THE NIGHT WITH LARGE AMOUNTS OF URINE OUTPUT. PT REPORTS THAT HER LABIA IS SWOLLEN AND NORMALLY IS NOT. UPON ASSESSMENT, LEFTLABIA NOTED TO HAVE SOME SWELLING. SPOUSE HAS REMAINED AT BEDSIDE THROUHGOUT THE NIGHT. NO OTHER CHANGES NOTED FROM INITIAL ASSESSMENT. WILL CONTINUE TO MONITOR AND REPORT TO ONCOMING SHIFT RN. BED IN LOW POSITION,CALL LIGHT IN REACH.
--- NOTE | 2019-03-07 08:02 | NUR ---
AM NOTE. ASSUMED CARE OF PT APROX 0700. PT IS A&Ox4 AND WAS ADMITTED FOR CARLITO. PT'S VS STABLE. PT DENIES PAIN AT THIS TIME. PT CALLS PRN TO BE STRAIGHT CATHED. PT'S IS AT THE BEDSIDE. IT IS NOTED THAT THE PT'S LABIA IS SWOLLEN, THIS WAS NOT THE CASE YESTERDAY, PROVIDER AWARE. L/S CLEAR T/O PT IS ON RA. BT PRESENT AND NORMOACTIVE. ABD IS SOFT AND NONTENDER TO PALP. CALL LIGHT IN REACH, WILL CONTINUE TO MONITOR.
[2019-03-07] MEDS ORDERED: Tylenol325 MG PO (12:27)
[2019-03-07] MEDS ORDERED: Amoxicillin500 MG PO (12:40)
[2019-03-07] MEDS ORDERED: TROSPIUM CHLORI20 MG PO (12:42)
[2019-03-07] MEDS ORDERED: ONDA4ODT SL (12:42)
[2019-03-07] MEDS ORDERED: HIPREX1 GM PO (12:43)
[2019-03-07] MEDS ORDERED: Florastor250 MG PO (12:43)
[2019-03-07] MEDS ORDERED: ASCO500 PO (12:44)
[2019-03-09 12:07] LABS: M-SPIKE, % Not Observed % (Not Observed); PROTEIN,TOTAL,URINE 6.9 mg/dL (Not Estab.)
[2019-03-09 16:06] LABS: A/G RATIO 1.3 (0.7-1.7); ALBUMIN 3.1 g/dL (2.9-4.4); ALPHA-1-GLOBULIN 0.3 g/dL (0.0-0.4); ALPHA-2-GLOBULIN 0.6 g/dL (0.4-1.0); BETA GLOBULIN 0.6 g/dL (0.7-1.3); GLOBULIN, TOTAL 2.5 g/dL (2.2-3.9); IMMUNOGLOBULIN A, QN, SERUM 129 mg/dL (87-352); IMMUNOGLOBULIN G, QN, SERUM 992 mg/dL (700-1600); IMMUNOGLOBULIN M, QN, SERUM 90 mg/dL (26-217); M-SPIKE Not Observed g/dL (Not Observed); PROTEIN, TOTAL, SERUM 5.6 g/dL (6.0-8.5)
== END 2019-03-07 17:31 | disposition home or self-care (01) | DRG 871 ==
LOC: ER 12:39 → PCU 15:59
PROVIDERS: Internal Medicine Nephrology; Nurse Practitioner Acute Care; Physician Assistant; ADMIT Family Medicine
DX: A41.9 Sepsis, unspecified organism (principal); J18.9 Pneumonia, unspecified organism; G92 Toxic encephalopathy; G82.50 Quadriplegia, unspecified; N17.9 Acute kidney failure, unspecified; N39.0 Urinary tract infection, site not specified; M81.0 Age-related osteoporosis without current pathological fracture; Z15.01 Genetic susceptibility to malignant neoplasm of breast; Z93.0 Tracheostomy status; E83.52 Hypercalcemia; E86.0 Dehydration; M06.9 Rheumatoid arthritis, unspecified; E03.9 Hypothyroidism, unspecified; E83.39 Other disorders of phosphorus metabolism; E88.09 Other disorders of plasma-protein metabolism, not elsewhere classified; G89.4 Chronic pain syndrome; N18.3 Chronic kidney disease, stage 3 (moderate); N31.9 Neuromuscular dysfunction of bladder, unspecified
CPT/HCPCS: 31720; 36415; 51701; 51702; 71045; 76770; 80053; 80069; 81001; 81050; 82306; 82310; 82330; 82397; 82530; 82533; 82550; 82652; 82728; 82784; 83540; 83550; 83605; 83735; 83970; 84100; 84156; 84165; 84166; 84443; 84550; 85025; 86334; 86335; 87040; 87077; 87086; 87186; 96361; 96365; 96375; 99285-25; J0290; J0630; J0744; J0881; J1644; J1940; J7030

== ENCOUNTER → 2019-03-18 | Outpatient (CLI) | payer BC ==
[~2019-03-18] MED LIST changes: +Amoxicillin500 MG PO; +Enablex7.5 MG PO; +Florastor250 MG PO; +HIPREX1 GM PO; +ONDA4ODT SL; +TROSPIUM CHLORI20 MG PO; +Tylenol325 MG PO
[2019-03-18 16:22] LABS: Calcium, Urine 12.7 mg/dL (< 17.5); Calcium, Urine Calculation 114.3 mg/24hrs (42.0-353.0)
== END | disposition home or self-care (01) ==
LOC: OLS 11:40 → LAB SHORT 11:40 → LAB FUT 03-16 15:30
PROVIDERS: Internal Medicine
DX: E83.52 Hypercalcemia (principal)
CPT/HCPCS: 81050; 82340

== ENCOUNTER → 2019-03-28 | Outpatient (CLI) | payer BC ==
[2019-03-28 18:08] LABS: Bilirubin, Urine Neg (Neg); Blood, Urine 2+ (Neg); Glucose Qualitative, Urine Neg (Neg); Ketones, Urine Neg (Neg); Leukocyte Esterase, Urine 3+ (Neg); Nitrite, Urine Neg (Neg); Protein, Urine 2+ (Neg); Specific Gravity, Urine 1.015 (1.003-1.022); Urobilinogen, Urine NORM (Normal)
[2019-03-28 18:17] LABS: Appearance, Urine Hazy (Clear); Color, Urine Pale Yellow (P-Yellow)
[2019-03-28 18:18] LABS: White Blood Cells, Urine 25-50 /hpf (0-5)
[2019-03-28 18:19] LABS: Bacteria Few /hpf; Squamous Epithelial Cells Rare /hpf (Few)
== END | disposition home or self-care (01) ==
LOC: LAB SRC 14:00 → LAB SHORT 14:00 → LAB FUT 03-13 13:40
PROVIDERS: Internal Medicine
DX: N39.0 Urinary tract infection, site not specified (principal)
CPT/HCPCS: 81001; 87077; 87086; 87106; 87186

== ENCOUNTER → 2019-04-06 | Outpatient (CLI) | payer BC, MEDICARE ==
[2019-04-06 16:04] LABS: Bilirubin, Urine Neg (Neg); Blood, Urine 2+ (Neg); Glucose Qualitative, Urine Neg (Neg); Ketones, Urine Neg (Neg); Leukocyte Esterase, Urine 3+ (Neg); Nitrite, Urine Neg (Neg); Protein, Urine 1+ (Neg); Urobilinogen, Urine NORM (Normal); pH, Urine 6.5 (5.0-8.0)
[2019-04-06 16:11] LABS: Appearance, Urine Hazy (Clear); Color, Urine Yellow (P-Yellow)
[2019-04-06 16:12] LABS: White Blood Cells, Urine 50-100 /hpf (0-5)
[2019-04-06 16:13] LABS: Bacteria Few /hpf; Squamous Epithelial Cells Rare /hpf (Few)
== END | disposition home or self-care (01) ==
LOC: LAB SHORT 15:15 → OLS 15:15
PROVIDERS: Internal Medicine
DX: N39.0 Urinary tract infection, site not specified (principal)
CPT/HCPCS: 81001; 87077; 87086; 87186

== ENCOUNTER → 2020-01-31 | Outpatient (CLI) | payer MEDICARE ==
[2020-01-31 18:11] LABS: Appearance, Urine Cloudy (Clear); Bilirubin, Urine Neg (Neg); Blood, Urine 2+ (Neg); Color, Urine Yellow (P-Yellow); Glucose Qualitative, Urine Neg (Neg); Ketones, Urine Neg (Neg); Leukocyte Esterase, Urine 3+ (Neg); Nitrite, Urine Pos (Neg); Protein, Urine 2+ (Neg); Urobilinogen, Urine NORM (Normal); pH, Urine 6.5 (5.0-8.0)
[2020-01-31 18:26] LABS: Bacteria Few /hpf; Squamous Epithelial Cells Few /hpf (Few); White Blood Cells, Urine 25-50 /hpf (0-5)
== END | disposition home or self-care (01) ==
LOC: LAB SHORT 13:45 → LAB SRC 13:45
PROVIDERS: Internal Medicine
DX: R30.0 Dysuria (principal)
CPT/HCPCS: 81001

== ENCOUNTER → 2020-02-17 | Outpatient (CLI) | payer MEDICARE ==
[2020-02-17 11:42] LABS: Appearance, Urine Clear (Clear); Bilirubin, Urine Neg (Neg); Blood, Urine 1+ (Neg); Color, Urine Yellow (P-Yellow); Glucose Qualitative, Urine Neg (Neg); Ketones, Urine Neg (Neg); Leukocyte Esterase, Urine 2+ (Neg); Nitrite, Urine Neg (Neg); Protein, Urine Neg (Neg); Urobilinogen, Urine NORM (Normal); pH, Urine 6.5 (5.0-8.0)
[2020-02-17 12:08] LABS: Bacteria Few /hpf; Red Blood Cells, Urine 0-2 /hpf (0-2); Squamous Epithelial Cells Rare /hpf (Few)
== END | disposition home or self-care (01) ==
LOC: LAB SHORT 11:02 → PLD 11:02
PROVIDERS: Internal Medicine
DX: R30.0 Dysuria (principal)
CPT/HCPCS: 81001; 87077; 87086; 87186

== ENCOUNTER → 2020-03-08 | Outpatient (CLI) | payer MEDICARE ==
[~2020-03-08] MED LIST changes: +CLIN150 PO; +CUBICIN500 MG IV; +Cipro500 MG PO; +FURO20 PO; -LEVSOD50 PO; +MOBIC15 MG PO; +MUPIROCIN22 G2 TOP; +OMEP20ER PO; -OMEPRAZOLE MAGN20 MG PO; +ONDA4ODT MM; +SOLIFENACIN SUC10 MG PO; +THERA-D2000 UNIT PO; +Tazicef1 G1 IV; +VISBIOME 112.51 EACH PO
[2020-03-08 09:30] LABS: Appearance, Urine Clear (Clear); Bilirubin, Urine Neg (Neg); Blood, Urine Neg (Neg); Color, Urine Yellow (P-Yellow); Glucose Qualitative, Urine Neg (Neg); Ketones, Urine Neg (Neg); Leukocyte Esterase, Urine Neg (Neg); Nitrite, Urine Neg (Neg); Protein, Urine Neg (Neg); Urobilinogen, Urine NORM (Normal)
== END ==
LOC: LAB SHORT 07:53
PROVIDERS: Internal Medicine
DX: R30.0 Dysuria (principal)
CPT/HCPCS: 81003

== ENCOUNTER 2020-04-03 03:21 | Emergency (ER) | payer MEDICARE ==
[~2020-04-03] VITALS: Ht 160 cm; Wt 46.7 kg
[~2020-04-03 03:21] MED LIST changes: -CLIN150 PO; -CUBICIN500 MG IV; -Cipro500 MG PO; -FURO20 PO; -MOBIC15 MG PO; -MUPIROCIN22 G2 TOP; -ONDA4ODT MM; -SOLIFENACIN SUC10 MG PO; -THERA-D2000 UNIT PO; -Tazicef1 G1 IV; -VISBIOME 112.51 EACH PO
[2020-04-04] MEDS ORDERED: Cipro500 MG PO (04:18)
[2020-06-14] MEDS ORDERED: OXYC5 PO (08:29)
[2020-06-14] MEDS ORDERED: CLIN150 PO (08:30)
[2020-06-14] MEDS ORDERED: MUPIROCIN22 G2 TOP (12:39)
[2020-06-14] MEDS ORDERED: MOBIC15 MG PO (12:41)
== END 2020-04-03 06:12 | disposition home or self-care (01) ==
LOC: ER 03:21
DX: R06.02 Shortness of breath (principal); Z88.2 Allergy status to sulfonamides; Z88.1 Allergy status to other antibiotic agents; Z88.5 Allergy status to narcotic agent; Z88.6 Allergy status to analgesic agent; Z79.899 Other long term (current) drug therapy
CPT/HCPCS: 31720; 71046; 99285-25

== ENCOUNTER 2020-04-04 02:24 | Emergency (ER) | payer MEDICARE ==
[~2020-04-04] VITALS: Ht 152.4 cm; Wt 47.6 kg
[2020-04-04 02:41] LABS: Source, Urine Clean Catch
[2020-04-04 02:44] LABS: Bilirubin, Urine Neg (Neg); Blood, Urine 2+ (Neg); Glucose Qualitative, Urine Neg (Neg); Ketones, Urine Neg (Neg); Leukocyte Esterase, Urine 3+ (Neg); Nitrite, Urine Neg (Neg); Protein, Urine 1+ (Neg); Specific Gravity, Urine 1.015 (1.003-1.022); Urobilinogen, Urine NORM (Normal)
[2020-04-04 02:59] LABS: Appearance, Urine Hazy (Clear); Color, Urine Yellow (P-Yellow)
[2020-04-04 03:00] LABS: Bacteria Few /hpf; Red Blood Cells, Urine 0-2 /hpf (0-2); Squamous Epithelial Cells Rare /hpf (Few); White Blood Cells, Urine TNTC /hpf (0-5)
[2020-04-04 03:35] LABS: BASOPHILS ABSOLUTE AUTO 0.02 K/mm3 (0.00-0.23); BASOPHILS PERCENT AUTO 0 % (0-2); EOSINOPHILS ABSOLUTE AUTO 0.06 K/mm3 (0.00-0.68); EOSINOPHILS PERCENT AUTO 1 % (0-6); Hematocrit 33.4 % (33.0-51.0); Hemoglobin 10.2 g/dL (11.5-16.0); Mean Corpuscular HGB 30.6 pg (26.0-34.0); Mean Corpuscular HGB Conc 30.5 g/dL (31.5-36.5); Mean Corpuscular Volume 100 fL (80-100); Mean Platelet Volume 12.4 fL (9.1-12.4); Platelet Count 107 K/mm3 (150-400); RDW Coefficient Variation 13.8 % (11.7-14.2); RDW Standard Deviation 50.4 fL (35.1-46.3); Red Blood Cell Count 3.33 M/mm3 (3.80-5.20); White Blood Cell Count 4.92 K/mm3 (4.00-11.30)
[2020-04-04 03:36] LABS: IMMATURE GRAN ABSOLUTE AUTO 0.01 K/mm3 (0.00-0.10); IMMATURE GRAN PERCENT AUTO 0 % (0-1); LYMPHOCYTES PERCENT AUTO 10 % (21-46); MONOCYTES ABSOLUTE AUTO 0.08 K/mm3 (0.16-1.47); MONOCYTES PERCENT AUTO 2 % (4-13); NEUTROPHILS ABSOLUTE AUTO 4.25 K/mm3 (1.96-9.15); NEUTROPHILS PERCENT AUTO 86 % (41-73)
[2020-04-04 03:55] LABS: Alanine Aminotransfer (ALT/SGP 8 U/L (12-78); Albumin, Blood 2.3 g/dL (3.4-5.0); Albumin/Globulin Ratio 0.6 (0.8-1.8); Alk Phos 68 U/L (50-136); Anion Gap 4 mmol/L (6-16); Aspartate Aminotrans (AST/SGOT 12 U/L (12-37); Bilirubin, Total 0.9 mg/dL (0.1-1.0); Blood Urea Nitrogen 35 mg/dL (8-24); Bun/Creatinine Ratio 27.1 (12.0-20.0); CO2, Blood 29 mmol/L (21-32); Calcium, Blood 8.1 mg/dL (8.5-10.1); Chloride, Blood 105 mmol/L (98-108); Creatinine, Blood 1.29 mg/dL (0.40-1.00); Globulin, Blood 3.6 g/dL (2.2-4.0); Glomerular Filtration Rate 45 (60-); Glucose, Blood 100 mg/dL (70-99); Potassium, Blood 4.8 mmol/L (3.5-5.5); Sodium, Blood 138 mmol/L (136-145); Total Protein, Blood 5.9 g/dL (6.4-8.2); Troponin I <0.015 ng/mL (0.000-0.040)
[2020-04-04] MEDS ORDERED: Cipro500 MG PO (04:18)
[2020-06-14] MEDS ORDERED: OXYC5 PO (08:29)
[2020-06-14] MEDS ORDERED: CLIN150 PO (08:30)
[2020-06-14] MEDS ORDERED: MUPIROCIN22 G2 TOP (12:39)
[2020-06-14] MEDS ORDERED: MOBIC15 MG PO (12:41)
== END 2020-04-04 04:38 | disposition home or self-care (01) ==
LOC: ER 02:24
PROVIDERS: Emergency Medicine
DX: N39.0 Urinary tract infection, site not specified (principal); Z88.2 Allergy status to sulfonamides; Z88.1 Allergy status to other antibiotic agents; Z88.5 Allergy status to narcotic agent; Z88.3 Allergy status to other anti-infective agents; Z79.899 Other long term (current) drug therapy
CPT/HCPCS: 36415; 71045; 80053; 81001; 83605; 83690; 84484; 85025; 87040; 87086; 99285-25; A9270

== ENCOUNTER 2020-04-15 00:53 | Inpatient (IN) | payer MEDICARE ==
[~2020-04-15] VITALS: Ht 165.1 cm; Wt 45.6 kg
[~2020-04-15 00:53] MED LIST changes: +Cipro500 MG PO
[2020-04-15] MEDS ORDERED: SOLIFENACIN SUC10 MG PO (01:47)
[2020-04-15 01:56] LABS: PCO2 Arterial 65.3 mmHg (35-45); PO2 Arterial 78.1 mmHg (80-100); pH Blood Arterial 7.33 (7.35-7.45)
[2020-04-15 01:59] LABS: BASOPHILS ABSOLUTE AUTO 0.02 K/mm3 (0.00-0.23); BASOPHILS PERCENT AUTO 0 % (0-2); EOSINOPHILS ABSOLUTE AUTO 0.03 K/mm3 (0.00-0.68); EOSINOPHILS PERCENT AUTO 1 % (0-6); Hematocrit 39.6 % (33.0-51.0); Hemoglobin 11.7 g/dL (11.5-16.0); IMMATURE GRAN ABSOLUTE AUTO 0.03 K/mm3 (0.00-0.10); IMMATURE GRAN PERCENT AUTO 1 % (0-1); LYMPHOCYTES ABSOLUTE AUTO 0.45 K/mm3 (0.84-5.20); LYMPHOCYTES PERCENT AUTO 7 % (21-46); MONOCYTES ABSOLUTE AUTO 0.77 K/mm3 (0.16-1.47); MONOCYTES PERCENT AUTO 12 % (4-13); Mean Corpuscular HGB 30.3 pg (26.0-34.0); Mean Corpuscular HGB Conc 29.5 g/dL (31.5-36.5); Mean Corpuscular Volume 103 fL (80-100); Mean Platelet Volume 11.9 fL (9.1-12.4); NEUTROPHILS ABSOLUTE AUTO 5.23 K/mm3 (1.96-9.15); NEUTROPHILS PERCENT AUTO 80 % (41-73); Platelet Count 123 K/mm3 (150-400); RDW Coefficient Variation 13.7 % (11.7-14.2); RDW Standard Deviation 51.7 fL (35.1-46.3); Red Blood Cell Count 3.86 M/mm3 (3.80-5.20); White Blood Cell Count 6.53 K/mm3 (4.00-11.30)
[2020-04-15 02:03] LABS: Alanine Aminotransfer (ALT/SGP 10 U/L (12-78); Albumin, Blood 2.8 g/dL (3.4-5.0); Albumin/Globulin Ratio 0.7 (0.8-1.8); Alk Phos 70 U/L (50-136); Anion Gap 1 mmol/L (6-16); Aspartate Aminotrans (AST/SGOT 9 U/L (12-37); Bilirubin, Total 0.5 mg/dL (0.1-1.0); Blood Urea Nitrogen 16 mg/dL (8-24); Bun/Creatinine Ratio 16.7 (12.0-20.0); CO2, Blood 36 mmol/L (21-32); Calcium, Blood 8.4 mg/dL (8.5-10.1); Chloride, Blood 104 mmol/L (98-108); Creatinine, Blood 0.96 mg/dL (0.40-1.00); Globulin, Blood 3.8 g/dL (2.2-4.0); Glomerular Filtration Rate >60 (60-); Glucose, Blood 101 mg/dL (70-99); Potassium, Blood 4.6 mmol/L (3.5-5.5); Sodium, Blood 141 mmol/L (136-145); Total Protein, Blood 6.6 g/dL (6.4-8.2); Troponin I <0.015 ng/mL (0.000-0.040)
[2020-04-15 02:49] LABS: Influenza A, PCR Negative (NEGATIVE); Influenza B, PCR Negative (NEGATIVE); Resp Syncytial Virus, PCR Negative (NEGATIVE); SARS-Cov-2 (COVID-19) PCR, MMC Negative (NEGATIVE)
[2020-04-15] MEDS ORDERED: THERA-D2000 UNIT PO (06:09)
[2020-04-15 06:42] LABS: Source, Urine Catheter
[2020-04-15 06:51] LABS: Appearance, Urine Clear (Clear); Bilirubin, Urine Neg (Neg); Blood, Urine 2+ (Neg); Color, Urine Yellow (P-Yellow); Glucose Qualitative, Urine Neg (Neg); Ketones, Urine Neg (Neg); Leukocyte Esterase, Urine 1+ (Neg); Nitrite, Urine Neg (Neg); Protein, Urine Neg (Neg); Urobilinogen, Urine NORM (Normal)
[2020-04-15 07:01] LABS: Amorphous Light (0-Heavy); Bacteria Mod /hpf; Squamous Epithelial Cells Rare /hpf (Few)
--- NOTE | 2020-04-15 07:17 | NUR ---
ADMIT ASSESSMENT PT ADMITTED TO ICU 07 AT 0540. ARRIVED VIA GURNEY, TRANSFERED BY STAFF TO BED WITH SLIDER SHEET. PT WITH HX C6- C7 FX IN 1999. PT QUADRIPLEGIC. PT ABLE TO MOVE ARMS BUT NO FINE MOTOT MOVEMENT. LUNGS CLEAR ON 40% TRACH T-PIECE. PT ABLE TO PLUG TRACH AND TALK WITHOUT DROPPING ON O2 SATS. HEART RATE 70'S. ONLY ABLE TO OBTAIN DALIA BP. NO EDEMA. IV TO RIGHT FOREARM AND LEFT FOREARM SALINE LOCKED. MAYO CATH PATENT DRAINING CLEAR YELLOW URINE. UA SENT FROM ER. AT BEDSIDE. SCD'S APPLIED. REPORT TO ON COMING NURSE
--- NOTE | 2020-04-15 08:30 | NUR ---
ASSUMED CARE BEDSIDE REPORT FROM PHOENIX NG AT 0700. PT RESTING IN BED, AT BEDSIDE. ALERT, ATTEMPTING TO ANSWER QUESTIONS BY MOUTHING WORDS. AT HOME, PLUGS TRACH TO SPEAK, UNABLE TO D/T T PIECE. FIO2 40%. LUNGS DIMINISHED IN BASES. GROSS MOTOR MOVEMENT TO UPPER EXTREMITIES, CONTRACTIONS NOTED TO ALL EXTREMITIES. SO REPORTS NORMAL SBP 80'S. VSS. WILL CONTINUE TO MONITOR.
--- NOTE | 2020-04-15 11:06 | NUR ---
Pt showing some fatigue with caping trach to speak and some drop in sats. Provided communication board for basic needs such as pain and care needs. pt interested and reviewed board carefully. Her came in and she was able totolerate some conversation with him with breaks in between. Advised to use board for symtoms and needs when fatigued so sats do not drop. Advised hisband to bring in glasses so she can see. Will return for advnace care planning.
--- NOTE | 2020-04-15 17:40 | NUR ---
Spiritual care note: I met with spouse at bedside. Pt appeared to be resting peacefully. I was tasked to provide education on ACP for pt. Spouse not really interested in talking about Advanced Directive/POLST at this time. I left an AD packet and advised I would be available if they had questions.
--- NOTE | 2020-04-15 17:44 | NUR ---
SHIFT SUMMARY PT STATUS CHANGED TO PCU THIS SHIFT. REMAINS ON TPIECE, 35%. O2 SATS >95%, DECREASE WHEN PT REMOVES TO PLUG TRACH TO SPEAK. LUNGS DIMINISHED. HYPOTENSION, BASELINE PER SO. ECHO COMPLETE THIS SHIFT. DIURESED. 500 ML CLOUDY YELLOW URINE OUT. SO AT BEDSIDE MOST OF SHIFT. ASSISTED c TURNS AND FEEDING PT. PT EATS AND DRINKS s DIFFICULTY. WILL CONTINUE TO MONITOR UNTIL REPORT TO ONCOMING NURSE.
--- NOTE | 2020-04-16 00:35 | NUR ---
04/15 @ 21:05 RECHECKED MANUAL BP, READING 72/50. PT. STILL ROUSABLE, NO CHANGE IN NEURO STATUS. UPON INVESTIGATING MAR NOTICED PT. WAS RECEIVING MORE OXYCONTIN THAN WHAT PT. RECEIVES AT HOME. CONFIRMED WITH PT. TAKES 10 MG TID, NOT 20 MG HAS BEEN ORDERED. SPOKE WITH PHARMACY, UPDATED GABAPENTIN AND OXYCONTIN DOSES AND FREQUENCIES TO WHAT PATIENT TAKES AT HOME, SEE MED RECONCILIATION. NIGHT HAS PROGRESSED BP IS IMPROVING, MORE EASILY ROUSABLE. HOLDING OXYCONTIN DOSE THIS EVENING. PER DR. CARSON GIVE 250 ML BOLUS. WILL CONTINUE TO MONITOR.
[2020-04-16 03:32] LABS: BASOPHILS ABSOLUTE AUTO 0.01 K/mm3 (0.00-0.23); BASOPHILS PERCENT AUTO 0 % (0-2); EOSINOPHILS PERCENT AUTO 2 % (0-6); Hematocrit 35.7 % (33.0-51.0); Hemoglobin 10.8 g/dL (11.5-16.0); IMMATURE GRAN ABSOLUTE AUTO 0.02 K/mm3 (0.00-0.10); IMMATURE GRAN PERCENT AUTO 1 % (0-1); LYMPHOCYTES ABSOLUTE AUTO 0.41 K/mm3 (0.84-5.20); LYMPHOCYTES PERCENT AUTO 10 % (21-46); MONOCYTES ABSOLUTE AUTO 0.35 K/mm3 (0.16-1.47); MONOCYTES PERCENT AUTO 9 % (4-13); Mean Corpuscular HGB 30.6 pg (26.0-34.0); Mean Corpuscular HGB Conc 30.3 g/dL (31.5-36.5); Mean Corpuscular Volume 101 fL (80-100); Mean Platelet Volume 11.6 fL (9.1-12.4); NEUTROPHILS ABSOLUTE AUTO 3.21 K/mm3 (1.96-9.15); NEUTROPHILS PERCENT AUTO 78 % (41-73); Platelet Count 109 K/mm3 (150-400); RDW Coefficient Variation 13.5 % (11.7-14.2); RDW Standard Deviation 50.2 fL (35.1-46.3); Red Blood Cell Count 3.53 M/mm3 (3.80-5.20)
[2020-04-16 03:49] LABS: Albumin, Blood 2.6 g/dL (3.4-5.0); Anion Gap 3 mmol/L (6-16); Blood Urea Nitrogen 21 mg/dL (8-24); Bun/Creatinine Ratio 16.9 (12.0-20.0); CO2, Blood 37 mmol/L (21-32); Calcium, Blood 7.7 mg/dL (8.5-10.1); Chloride, Blood 97 mmol/L (98-108); Creatinine, Blood 1.24 mg/dL (0.40-1.00); Glomerular Filtration Rate 47 (60-); Glucose, Blood 89 mg/dL (70-99); Magnesium, Blood 1.7 mg/dL (1.6-2.4); Phosphorus, Blood 3.7 mg/dL (2.5-4.9); Potassium, Blood 3.9 mmol/L (3.5-5.5); Sodium, Blood 137 mmol/L (136-145)
--- NOTE | 2020-04-16 06:09 | NUR ---
SHIFT SUMMARY NO FURTHER CHANGES TO NOTE ASIDE FROM PREVIOUS NOTE. ASSESSMENT IS CHARTED. NO C/O PAIN. VSS. WILL CONTINUE TO MONITOR.
--- NOTE | 2020-04-16 08:34 | NUR ---
ASSUMED CARE RECEIVED REPORT FROM BERENICE BAR. PT IS LYING IN BED, IN AND OUT OF SLEEP. SHE AROUSED TO VERBAL STIMULI, BUT APPEARS ALERT WHEN AWAKE. HER SPOUSE/CAREGIVER IS AT BEDSIDE, AND WILL ASSIST WITH BREAKFAST/FEEDING. PATENT MAYO. CALL LIGHT WITHIN REACH. BED LOW AND LOCKED.
--- NOTE | 2020-04-16 10:37 | NUR ---
ICU rounding with welding process specialist to review plan o9f care. Follow up visit with pt to review symptoms, Medications adjusted review of symtpoms no headaches or nausea today. Will continue to try to speak with dung about advance directives at this time he is resistant.
--- NOTE | 2020-04-16 17:59 | NUR ---
SHIFT SUMMARY NO MAJOR CHANGES T/O DAY. PT RECEIVING 26% FIO2 THROUGH TRACH WITH HUMIDITY, SAT'ing IN THE MID 90s%. RT ATTEMPTED TAKING HER OFF THE OXYGEN BUT PT DESATTED TO MID 80s%. PT HAVING THICK, KINGSLEY SECRETIONS - CULTURE SENT TO LAB. PTs HR IS SLIGHTLY TACHY, RATE 90-100s. BP IS SOFT, BUT AT BASELINE PER PT AND HER SPOUSE (SBP 70-90), DR. MONTALVO CONSULTED, AND CHANGED HER LASIX TO DAILY FROM BID. ROCEPHIN ADDED TO EMAR, FIRST DOSE GIVEN THIS AFTERNOON. HER CAREGIVER IS HER SPOUSE HAS BEEN WITH HER THE MAJORITY OF THE DAY ASSISTING WITH TURNS, CARE, AND FEEDING. DIFFICULT FOR PT TO COMMUNICATE WITH OXYGEN CONNECTING TO TRACH, BUT CAN MOUTH WORDS. SHE IS ALERT AND ORIENTED X 4, AND HAS SOME MOVEMENT, BUT NO FINE MOTOR. NO BM TODAY. [place] URINE OUTPUT, 1300 ML OF LIGHT YELLOW. BED LOW AND LOCKED. CALL LIGHT WITHIN REACH.
[2020-04-17 03:27] LABS: BASOPHILS ABSOLUTE AUTO 0.02 K/mm3 (0.00-0.23); BASOPHILS PERCENT AUTO 1 % (0-2); EOSINOPHILS ABSOLUTE AUTO 0.06 K/mm3 (0.00-0.68); EOSINOPHILS PERCENT AUTO 2 % (0-6); Hematocrit 37.5 % (33.0-51.0); Hemoglobin 11.3 g/dL (11.5-16.0); IMMATURE GRAN ABSOLUTE AUTO 0.01 K/mm3 (0.00-0.10); IMMATURE GRAN PERCENT AUTO 0 % (0-1); LYMPHOCYTES ABSOLUTE AUTO 0.45 K/mm3 (0.84-5.20); LYMPHOCYTES PERCENT AUTO 15 % (21-46); MONOCYTES ABSOLUTE AUTO 0.13 K/mm3 (0.16-1.47); MONOCYTES PERCENT AUTO 4 % (4-13); Mean Corpuscular HGB 29.8 pg (26.0-34.0); Mean Corpuscular HGB Conc 30.1 g/dL (31.5-36.5); Mean Corpuscular Volume 99 fL (80-100); Mean Platelet Volume 11.4 fL (9.1-12.4); NEUTROPHILS ABSOLUTE AUTO 2.44 K/mm3 (1.96-9.15); NEUTROPHILS PERCENT AUTO 79 % (41-73); Platelet Count 134 K/mm3 (150-400); RDW Coefficient Variation 13.4 % (11.7-14.2); RDW Standard Deviation 48.2 fL (35.1-46.3); Red Blood Cell Count 3.79 M/mm3 (3.80-5.20); White Blood Cell Count 3.11 K/mm3 (4.00-11.30)
[2020-04-17 03:40] LABS: Anion Gap 3 mmol/L (6-16); Blood Urea Nitrogen 20 mg/dL (8-24); Bun/Creatinine Ratio 20.5 (12.0-20.0); CO2, Blood 39 mmol/L (21-32); Calcium, Blood 8.1 mg/dL (8.5-10.1); Chloride, Blood 96 mmol/L (98-108); Creatinine, Blood 0.98 mg/dL (0.40-1.00); Glomerular Filtration Rate >60 (60-); Glucose, Blood 93 mg/dL (70-99); Potassium, Blood 4.1 mmol/L (3.5-5.5); Sodium, Blood 138 mmol/L (136-145)
[2020-04-17 06:02] LABS: PCO2 Arterial 63.9 mmHg (35-45); PO2 Arterial 70.2 mmHg (80-100); pH Blood Arterial 7.39 (7.35-7.45)
--- NOTE | 2020-04-17 06:28 | NUR ---
SHIFT SUMMARY NO ACUTE CHANGES OVERNIGHT. RT PLACED PATIENT ON TRACH COLLAR REMOVED T-PIECE. ASSESSMENT IS CHARTED. VSS. WILL CONTINUE TO MONITOR.
--- NOTE | 2020-04-17 08:32 | NUR ---
CARE ASSUMED OF PT AT 0700. PT RESTING IN BED DOZING ON AND OFF. WHOM IS PRIMARY MALTHOUSE LABORER IS AT BEDSIDE. PT AWAKENS TO VOICE AND DENIES C/O PAIN OR SOB. PT HAS TRACH IN PLACE W 02 VIA TRACH COLLAR AT 35%. PT'S LUNGS SOUNDS ARE ALMOST ABSENT TO RIGHT SIDE AND CLEAR TO LEFT. LASIX AND ROCHEPHIN GIVEN.
--- NOTE | 2020-04-17 10:00 | NUR ---
Assumed care of [id number] from Abby NG. Repositioned patient with caregiver. Patient denies any current needs or pain intervention. VSS See EMR. Caregiver/ at bedside.
--- NOTE | 2020-04-17 12:34 | NUR ---
ASSUMED CARE OF PT REPORT FROM RHIANNA NG PT ALERT AND ORIENTED AT THIS TIME. PT AT BEDSIDE ASSISTING WITH MEALS. PT. FINISHING BREATHING TX PER RT. LS CLEAR AT THIS TIME. VSS AT THIS TIME. NADN. SOFT TOUCH CALL LIGHT IN REACH.
--- NOTE | 2020-04-17 16:41 | NUR ---
ROUNDED ON PT. PT RESTING COMFORTABLY IN BED. WATER BOTTLE AT BEDSIDE. PT. DENIES PAIN AT THIS TIME. ADJUSTED POSITION IN BED PER PT. REQUEST. DEBBIE MEDEIROS.
--- NOTE | 2020-04-17 17:00 | NUR ---
REPORT TO KELECHI NG IN PCU. PT NOTIFIED OF ROOM CHANGE.
--- NOTE | 2020-04-17 18:23 | NUR ---
TRANSFER NOTE RECEIVED REPORT FROM DIPIAK RN, PT TO ROOM AT 1750; PAULO LITTLE PLACED ON BED, 4 PERSON ASSIST TO TRANSFER TO BED. PT ALERT, ANSWERING QUESTIONS APPROPRIATELY. PT HAS TRACH COLLAR IN PLACE, AT 30%, SPO2 >90%. PT DENIES PAIN, NAUSEA AND DIZZINESS. MINIMAL MOVEMENT IN UPPER EXTREMITIES NOTED, FLACCID BLE. REPOSITIONED. SUCTIONS SET UP AT BEDSIDE. BP HYPOTENSIVE, AT BASELINE. OTHER VSS. NO OTHER ACUTE CHANGES NOTED DURING. WILL CONTINUE TO MONITOR UNTIL REPORT REPORT GIVEN TO ONCOMING RN.
--- NOTE | 2020-04-18 16:34 | NUR ---
SHIFT NOTE PT HAS BEEN A/O X4, ANSWERING QUESTIONS IN FULL SENTENCES. PT WITH LIMITED USE OF BUEs R/T SPINAL INJURY. LS DIM BUT CLEAR T/O. SPOUSE IS AT THE BEDSIDE AND IS VERY HELPFUL IN PT CARE. MAYO DRAINING TO GRAVITY.
[2020-04-19 03:51] LABS: Hematocrit 32.8 % (33.0-51.0); Hemoglobin 9.9 g/dL (11.5-16.0); Mean Corpuscular HGB 29.6 pg (26.0-34.0); Mean Corpuscular HGB Conc 30.2 g/dL (31.5-36.5); Mean Corpuscular Volume 98 fL (80-100); Mean Platelet Volume 12.1 fL (9.1-12.4); Platelet Count 114 K/mm3 (150-400); RDW Coefficient Variation 13.6 % (11.7-14.2); RDW Standard Deviation 48.8 fL (35.1-46.3); Red Blood Cell Count 3.35 M/mm3 (3.80-5.20); White Blood Cell Count 4.22 K/mm3 (4.00-11.30)
[2020-04-19 04:07] LABS: Anion Gap 1 mmol/L (6-16); Blood Urea Nitrogen 16 mg/dL (8-24); Bun/Creatinine Ratio 17.5 (12.0-20.0); CO2, Blood 39 mmol/L (21-32); Calcium, Blood 7.9 mg/dL (8.5-10.1); Chloride, Blood 96 mmol/L (98-108); Creatinine, Blood 0.91 mg/dL (0.40-1.00); Glomerular Filtration Rate >60 (60-); Glucose, Blood 134 mg/dL (70-99); Potassium, Blood 3.6 mmol/L (3.5-5.5); Sodium, Blood 136 mmol/L (136-145)
[2020-04-19 04:16] LABS: BAND PERCENT MAN 11 % (0-8); BASOPHILS ABSOLUTE MAN 0.08 K/mm3 (0.00-0.23); BASOPHILS PERCENT MAN 2 % (0-2); EOSINOPHILS PERCENT MAN 0 % (0-6); LYMPHOCYTES ABSOLUTE MAN 0.29 K/mm3 (0.84-5.20); LYMPHOCYTES PERCENT MAN 7 % (21-46); MONOCYTES ABSOLUTE MAN 0.25 K/mm3 (0.16-1.47); MONOCYTES PERCENT MAN 6 % (4-13); NEUTROPHILS ABSOLUTE MAN 3.58 K/mm3 (1.96-9.15); SEG NEUTROPHILS PERCENT MAN 74 % (41-73); TOTAL CELLS COUNTED 100
--- NOTE | 2020-04-19 04:55 | NUR ---
SHIFT SUMMARY PT RESTED COMFORTABLY THROUGH NIGHT. ALERT AND ORIENTED - ABLE TO MAKE NEEDS KNOWN. SATS >90% ON 30%FIO2 VIA TRACH. TELE NSR. Q2 TURNS. CHEST PHYSIOTHERAPY DONE WITH VEST WITH RESPIRATORY. TAKES PILLS WELL WITH WATER. SUCTIONED X1. MAYO IN PLACE - DRAINING TO GRAVITY, YOLI CARE PERFORMED. NO C/O NEW/WORSENING PAIN. VSS - BP REMAINS HYPOTENSIVE - NORMAL PER PT AND . CALL LIGHT WITHIN REACH, BED IN LOWEST POSITION. WILL CONTINUE TO MONITOR.
--- NOTE | 2020-04-19 13:00 | NUR ---
PT ARRIVED TO THE MEDICAL FLOOR FROM THE PCU, A/OX3, PT IS ABLE TO COMMUNICATE BY COVERING HER TRACH, PTS IS AT THE BEDSIDE, THE PT AND HER WERE ORIENTED TO THE ROOM AND CALL SYSTEM, CALL LIGHT IN REACH, WILL CONTINUE TO MONITOR AND ASSESS FOR CHANGES
--- NOTE | 2020-04-19 19:14 | NUR ---
PT IS A/OX3, PLEASANT AND COOPERATIVE, THE PT IS BEDREST DUE TO QUADRAPLEGIA, THE PT HAS A TRACH IN PLACE WITH O2 MANAGED BY RT, PTS IS AT THE BEDSIDE PROVIDING CARE TO THE PT THE PT IS ON AN EGG CRATE MATTRESS AND TURNED Q2 HRS, PT REQUESTED AN AIR BED, THE VIDEO EDITING INTERNSHIP IS AWARE AND IS ACTIVLY SEEKING A BED THERE ARE NO AIR BEDS AVAILABLE AT THIS TIME, CALL LIGHT IN REACH WILL CONTINUE TO MONITOR AND ASSESS FOR CHANGES
--- NOTE | 2020-04-19 20:24 | NUR ---
ASSUMED CARE. AOX3, AT BEDSIDE. SHE FINISHED EATING DINNER, NO TROUBLES SWALLOWING. LUNG SOUNDS ARE DIMINISHED IN THE BASES BUT CLEAR. OCCATIONAL COUGH. TRACH WITH O2 AT NIGHT BUT HAS HUMIDIFER ON IT AT THIS TIME. REPOSITIONED Q 2 HOURS. IV IN LEFT HAND LEAKING REMOVED IV. STARTED ANTIBOTICS ON THE RIGHT HAND. NO SKIN BREAKDOWN NOTED. TELE SINUS AT 86. DENIED ANY NEEDS AT THIS TIME. CALL LIGHT IS IN REACH.
[2020-04-20 05:25] LABS: BASOPHILS ABSOLUTE AUTO 0.03 K/mm3 (0.00-0.23); BASOPHILS PERCENT AUTO 1 % (0-2); EOSINOPHILS ABSOLUTE AUTO 0.09 K/mm3 (0.00-0.68); EOSINOPHILS PERCENT AUTO 4 % (0-6); Hematocrit 33.2 % (33.0-51.0); IMMATURE GRAN ABSOLUTE AUTO 0.01 K/mm3 (0.00-0.10); IMMATURE GRAN PERCENT AUTO 0 % (0-1); LYMPHOCYTES PERCENT AUTO 12 % (21-46); MONOCYTES ABSOLUTE AUTO 0.25 K/mm3 (0.16-1.47); MONOCYTES PERCENT AUTO 10 % (4-13); Mean Corpuscular HGB 29.9 pg (26.0-34.0); Mean Corpuscular HGB Conc 30.1 g/dL (31.5-36.5); Mean Corpuscular Volume 99 fL (80-100); Mean Platelet Volume 12.7 fL (9.1-12.4); NEUTROPHILS ABSOLUTE AUTO 1.73 K/mm3 (1.96-9.15); NEUTROPHILS PERCENT AUTO 72 % (41-73); Platelet Count 93 K/mm3 (150-400); RDW Coefficient Variation 13.4 % (11.7-14.2); RDW Standard Deviation 48.6 fL (35.1-46.3); Red Blood Cell Count 3.35 M/mm3 (3.80-5.20); White Blood Cell Count 2.41 K/mm3 (4.00-11.30)
[2020-04-20 05:46] LABS: Calcium, Blood 8.3 mg/dL (8.5-10.1); Creatinine, Blood 1.12 mg/dL (0.40-1.00); Potassium, Blood 3.4 mmol/L (3.5-5.5)
--- NOTE | 2020-04-20 06:20 | NUR ---
SHIFT SUMMARY: AOX3, REMAINED AT BEDSIDE TILL 2300. WILL RETURN THIS AM SO HE CAN ASSIST T/O THE DAY. VS SHOWED HYPOTENSION IN THE 80'S AT START OF SHIFT THAT CAME UP ABOVE 100 THIS AM. LUNG SOUNDS DIMINISHED IN BASES, NO COUGH THIS SHIFT. HAS HUMIDIFER TO TRACH WITH 2-3 LITERS OF O2. RESP HAVE BEEN EVEN AND UNLABORED. PAIN WELL MANAGED WITH CURRENT TREATMENT. REPOSITIONED PRN PER HER REQUEST. TELE REPORTED SINUS IN THE 80'S. DOES WELL GETTING HER NEEDS ACROSS BY PLUGGING HER TRACH AND TALKING. IV IN LEFT HAND DC'D DUE TO LEAKAGE, RIGHT HAND REMAINS PATENT. NO OTHER CHANGES TO REPORT. CALL LIGHT IS IN REACH.
--- NOTE | 2020-04-20 18:40 | NUR ---
SHIFT SUMMARY PT AxOx4. PLEASANT AND COOPERATIVE WITH CARE. , ALIN, IN THE ROOM FOR MOST OF THE DAY. ALIN IS PT'S JIVE DEVELOPER CAREGIVER SHE IS A QUADRIPLEGIC. RESPOSITIONING Q2 HOURS AND NEEDED. PT ON CONTACT PRECAUTIONS FOR + MRSA IN THE SPUTUM. PT CURRENTLY RECEIVING IV ABX. PLAN IS TO CONT IV ABX FOR A COUPLE DAYS, THEN GET NEW ELECTRIC WC ON Wednesday04/22/20, DC HOME AND CONTINUE IV ABX WITH OUTPATIENT INFUSION CLINIC. RESP THERAPY WORKING CLOSELY WITH PT THROUGHOUT THE DAY. TRACH CARE PERFORMED, BED BATH GIVEN, AND PT HAD BM. PT HAD LOW BP'S THIS SHIFT. LASIX WAS HELD. DR SINGH NOTIFIED. TELE WAS DC'D TODAY. PT CURRENTLY SLEEPING IN BED WITH CALL LIGHT IN REACH. VITALS REVIEWED. DENIES ANY NEEDS AT THIS TIME.
--- NOTE | 2020-04-21 04:27 | NUR ---
RETAIL CUSTOMER SERVICE SPECIALIST SUMMARY PT A&OX4, ABLE TO MAKE NEEDS KNOWN. PLEASANT AND COOPERATIVE TO CARE. PT AT BEDSIDE TIL 2340 THIS SHIFT. PT CALLS APPROPRIATELY AND ABLE TO COMMUNICATE WELL BY PLUGGING TRACH. NO C/O CP, SOB, OR N&V. PT ON 2LPM O2 VIA TRACH W/ HUMIDIFIER. LS DIM IN BASES. RESP EVEN AND UNLABORED. NO COUGH NOTED. PT MEDICATED FOR PAIN PER EMAR. Q2 TURNS. CHRONIC MAYO PATENT AND DRAINING CLEAR YELLOW URINE, PT DENIES DYSURIA. PT CALM AND RESTED IN BED AT THIS TIME. CALL LIGHT WITHIN REACH.
[2020-04-21 09:32] LABS: BASOPHILS ABSOLUTE AUTO 0.04 K/mm3 (0.00-0.23); BASOPHILS PERCENT AUTO 1 % (0-2); EOSINOPHILS ABSOLUTE AUTO 0.18 K/mm3 (0.00-0.68); EOSINOPHILS PERCENT AUTO 6 % (0-6); Hematocrit 36.6 % (33.0-51.0); Hemoglobin 10.9 g/dL (11.5-16.0); IMMATURE GRAN PERCENT AUTO 0 % (0-1); LYMPHOCYTES ABSOLUTE AUTO 0.43 K/mm3 (0.84-5.20); LYMPHOCYTES PERCENT AUTO 14 % (21-46); MONOCYTES PERCENT AUTO 13 % (4-13); Mean Corpuscular HGB Conc 29.8 g/dL (31.5-36.5); Mean Corpuscular Volume 101 fL (80-100); Mean Platelet Volume 12.6 fL (9.1-12.4); NEUTROPHILS ABSOLUTE AUTO 2.09 K/mm3 (1.96-9.15); NEUTROPHILS PERCENT AUTO 67 % (41-73); Platelet Count 102 K/mm3 (150-400); RDW Coefficient Variation 13.7 % (11.7-14.2); RDW Standard Deviation 50.4 fL (35.1-46.3); Red Blood Cell Count 3.63 M/mm3 (3.80-5.20); White Blood Cell Count 3.14 K/mm3 (4.00-11.30)
--- NOTE | 2020-04-21 16:48 | NUR ---
SHIFT SUMMARY PT AOX4, MAKE NEEDS KNOWN. PT AT BEDSIDE. PT IS QUADRAPLEGIA AT BASELINE, Q2 TURN. PT IS RECEIVING ABX. PT HAS CHRONIC MAYO- PATENT AND DRAINING. PLAN IS TO DC ON WEDNESDAY AND FU TO ATC FOR ABX/TX. PT IS RECEIVING OXYCONTIN SCHEDULED, PT C/O PAIN ON ELBOWS. TRACH CARE WAS DONE BY THE RT. BED IS IN THE LOWEST POSITION AND CALL LIGHT WITHIN REACH
--- NOTE | 2020-04-22 04:48 | NUR ---
EXCHANGE TELLER SUMMARY PT A&OX4, ABLE TO MAKE NEEDS KNOWN. PLEASANT AND COOPERATIVE TO CARE. PT's AT BEDSIDE TIL 2300 THIS SHIFT. PT IS QUADRIPLEGIC, Q2 TURNS FOR COMFORT. PT CALLS APPROPRIATELY, PT PLUGS TRACH OPENING WHEN TALKING. PT MEDICATED FOR PAIN PER EMAR. NO C/O CP, SOB OR N&V. PT ON O2 2LPM VIA TRACH W/ HUMIDIFIER. MAYO PATENT AND DRAINING CLEAR YELLOW URINE. DENIES DYSURIA. PT RESTING IN BED AT THIS TIME. BED AT LOWEST POSITION. CALL LIGHT WITHIN REACH.
[2020-04-22 04:52] LABS: BASOPHILS ABSOLUTE AUTO 0.04 K/mm3 (0.00-0.23); BASOPHILS PERCENT AUTO 1 % (0-2); EOSINOPHILS ABSOLUTE AUTO 0.22 K/mm3 (0.00-0.68); EOSINOPHILS PERCENT AUTO 7 % (0-6); Hematocrit 34.7 % (33.0-51.0); Hemoglobin 10.3 g/dL (11.5-16.0); IMMATURE GRAN ABSOLUTE AUTO 0.01 K/mm3 (0.00-0.10); IMMATURE GRAN PERCENT AUTO 0 % (0-1); LYMPHOCYTES ABSOLUTE AUTO 0.45 K/mm3 (0.84-5.20); LYMPHOCYTES PERCENT AUTO 14 % (21-46); MONOCYTES ABSOLUTE AUTO 0.55 K/mm3 (0.16-1.47); MONOCYTES PERCENT AUTO 17 % (4-13); Mean Corpuscular HGB 29.6 pg (26.0-34.0); Mean Corpuscular HGB Conc 29.7 g/dL (31.5-36.5); Mean Corpuscular Volume 100 fL (80-100); Mean Platelet Volume 12.2 fL (9.1-12.4); NEUTROPHILS ABSOLUTE AUTO 1.94 K/mm3 (1.96-9.15); NEUTROPHILS PERCENT AUTO 61 % (41-73); Platelet Count 107 K/mm3 (150-400); RDW Coefficient Variation 14.1 % (11.7-14.2); RDW Standard Deviation 50.4 fL (35.1-46.3); Red Blood Cell Count 3.48 M/mm3 (3.80-5.20); White Blood Cell Count 3.21 K/mm3 (4.00-11.30)
[2020-04-22 05:12] LABS: Anion Gap 4 mmol/L (6-16); Blood Urea Nitrogen 17 mg/dL (8-24); CO2, Blood 37 mmol/L (21-32); Calcium, Blood 9.2 mg/dL (8.5-10.1); Chloride, Blood 100 mmol/L (98-108); Glomerular Filtration Rate >60 (60-); Glucose, Blood 84 mg/dL (70-99); Potassium, Blood 4.2 mmol/L (3.5-5.5); Sodium, Blood 141 mmol/L (136-145)
--- NOTE | 2020-04-22 18:16 | NUR ---
SHIFT SUMMARY PT AxOx4. PLEASANT AND COOPERATIVE WITH CARE. , ALIN IN THE ROOM MOST OF THE DAY ASSISTING WITH CARE. ALIN IS PRIMARY CAREGIVER PT IS QUADRIPLEGIC AND HAS TRACHEOSTOMY. RT IN FOR BREATHING TX, TRACH CARE, PHYSIOTHERAPY T/O THE DAY. TURNING PT Q2 HOURS. CHRONIC MAYO CATH DRAINING TO GRAVITY. PT AND MET WITH PIG FURNACE OPERATOR TODAY, DARELL DUPONT TO DISCUSS PLAN. CURRENT PLAN IS TO DC TOMORROW AND F/U WITH INFUSION CLINIC FOR IV ABX FOR +MRSA IN THE SPUTUM. PT AND VERBALIZE UNDERSTANDING. VITALS REVIEWED. PT IS CURRENTLY RESTING IN BED WITH CALL/TOUCH LIGHT IN REACH.
[2020-04-23 04:59] LABS: Bun/Creatinine Ratio 14.8 (12.0-20.0); Calcium, Blood 9.4 mg/dL (8.5-10.1); Creatinine, Blood 1.15 mg/dL (0.40-1.00); Potassium, Blood 4.2 mmol/L (3.5-5.5)
--- NOTE | 2020-04-23 05:05 | NUR ---
60 year old Female with quadaplegia continues with humidified oxygen via trach mask. She has MRSA SERMARC PSEAE. PT is wheelchair bound lift PT to chair. Spouse is caregiver, & assists with cares until around 2129. PT plugs trach manually to speak & she displaces oxygen at times. Oxygen SAT less than 90% when trach mask displaced. Turned & repositioned Q 2 hours & PRN. Stiff & ridid with le spasticity. HAs mckay cath draining cloudy yellow urine. PT has larged hard pelleted stool per her baseline. On chronic narcotics with helpful effect on chronic pain. PT has soft call munguia & able to communicate. Totally dependent for ADLS & mobility bed mobility. Planning to dc home possibly today & continue IV antibiotics at outpt infusion center.
[2020-04-23] MEDS ORDERED: CUBICIN500 MG IV (14:18)
[2020-04-23] MEDS ORDERED: Tazicef1 G1 IV (14:19)
[2020-04-23] MEDS ORDERED: FURO20 PO (14:19)
[2020-04-23] MEDS ORDERED: ONDA4ODT MM (14:20)
[2020-04-23] MEDS ORDERED: VISBIOME 112.51 EACH PO (14:20)
--- NOTE | 2020-04-23 16:02 | NUR ---
DISCHARGE SUMMARY PT AxOx4 PLEASANT AND COOPERATIVE WITH CARE. PT DC TO HOME TODAY WITH . DISCUSSED DC INSTRUCTIONS INCLUDING DC MEDICATIONS AND FOLLOW UP APPOINTMENTS. PT AND VERBALIZE UNDERSTANDING OF DC INSTRUCTIONS. DENIES ANY FURTHER QUESTIONS AT THIS TIME. MAYO CATHETER DC'D AND IV REMOVED. PT HAD PICC LINE PLACED TODAY FOR OUTPATIENT IV ABX. PT TRANSFERRED VIA LIFT TO [facility]. VITALS REVIEWED. SAFELY ESCORTED OUT WITH DIRECTOR CHECK.
[2020-06-14] MEDS ORDERED: OXYC5 PO (08:29)
[2020-06-14] MEDS ORDERED: CLIN150 PO (08:30)
[2020-06-14] MEDS ORDERED: MUPIROCIN22 G2 TOP (12:39)
[2020-06-14] MEDS ORDERED: MOBIC15 MG PO (12:41)
== END 2020-04-23 15:40 | disposition home or self-care (01) | DRG 177 ==
LOC: ER 00:53 → ICUW 05:28 → PCU 05:28 → ICUE 05:28 → PCU 04-17 17:50 → MEDS 04-19 12:53
PROVIDERS: Emergency Medicine; Family Medicine; Internal Medicine; Internal Medicine Pulmonary Disease; ADMIT Internal Medicine
DX: J69.0 Pneumonitis due to inhalation of food and vomit (principal); I50.33 Acute on chronic diastolic (congestive) heart failure; G82.50 Quadriplegia, unspecified; J96.21 Acute and chronic respiratory failure with hypoxia; G92 Toxic encephalopathy; J96.22 Acute and chronic respiratory failure with hypercapnia; R64 Cachexia; Z68.1 Body mass index [BMI] 19.9 or less, adult; F11.20 Opioid dependence, uncomplicated; Z20.822 Contact with and (suspected) exposure to COVID-19; I95.89 Other hypotension; D69.6 Thrombocytopenia, unspecified; Z93.0 Tracheostomy status; G89.29 Other chronic pain; M06.9 Rheumatoid arthritis, unspecified; E03.9 Hypothyroidism, unspecified; Z99.81 Dependence on supplemental oxygen; J45.909 Unspecified asthma, uncomplicated; Z66 Do not resuscitate; B95.62 Methicillin resistant Staphylococcus aureus infection as the cause of diseases classified elsewhere
CPT/HCPCS: 0241U; 31720; 36415; 36600; 51702; 71045; 80048; 80053; 80069; 81001; 82803; 82947; 83605; 83735; 83880; 84443; 84484; 85025; 87040; 87070; 87077; 87147; 87186; 87205; 93005; 93010; 93306; 94640; 94667; 94668; 94760; 94761; 94762; 96374-59; 99285-25; A9270; J0696; J0713; J0878; J1650; J1940; J3370; J7050

== ENCOUNTER 2020-04-24 00:09 | Day surgery (SDC) | payer MEDICARE ==
[~2020-04-24 00:09] MED LIST changes: +CUBICIN500 MG IV; +FURO20 PO; +ONDA4ODT MM; +SOLIFENACIN SUC10 MG PO; +THERA-D2000 UNIT PO; +Tazicef1 G1 IV; +VISBIOME 112.51 EACH PO
[2020-06-14] MEDS ORDERED: OXYC5 PO (08:29)
[2020-06-14] MEDS ORDERED: CLIN150 PO (08:30)
[2020-06-14] MEDS ORDERED: MUPIROCIN22 G2 TOP (12:39)
[2020-06-14] MEDS ORDERED: MOBIC15 MG PO (12:41)
== END 2020-04-24 17:30 | disposition home or self-care (01) ==
LOC: ATC 00:09
DX: J15.1 Pneumonia due to Pseudomonas (principal); G82.50 Quadriplegia, unspecified; I50.9 Heart failure, unspecified; Z93.0 Tracheostomy status
CPT/HCPCS: 96365; 96367; J0713; J0878

== ENCOUNTER 2020-04-25 00:18 | Day surgery (SDC) | payer MEDICARE ==
[2020-06-14] MEDS ORDERED: OXYC5 PO (08:29)
[2020-06-14] MEDS ORDERED: CLIN150 PO (08:30)
[2020-06-14] MEDS ORDERED: MUPIROCIN22 G2 TOP (12:39)
[2020-06-14] MEDS ORDERED: MOBIC15 MG PO (12:41)
== END 2020-04-25 17:30 | disposition home or self-care (01) ==
LOC: ATC 00:18
DX: J15.1 Pneumonia due to Pseudomonas (principal); G82.50 Quadriplegia, unspecified; I50.9 Heart failure, unspecified; Z93.0 Tracheostomy status; Z88.1 Allergy status to other antibiotic agents; Z88.5 Allergy status to narcotic agent; Z88.2 Allergy status to sulfonamides; Z88.8 Allergy status to other drugs, medicaments and biological substances
CPT/HCPCS: 96365; 96368; J0713; J0878

== ENCOUNTER 2020-04-26 00:23 | Day surgery (SDC) | payer MEDICARE ==
[2020-06-14] MEDS ORDERED: OXYC5 PO (08:29)
[2020-06-14] MEDS ORDERED: CLIN150 PO (08:30)
[2020-06-14] MEDS ORDERED: MUPIROCIN22 G2 TOP (12:39)
[2020-06-14] MEDS ORDERED: MOBIC15 MG PO (12:41)
== END 2020-04-26 17:05 | disposition home or self-care (01) ==
LOC: ATC 00:23
DX: J15.1 Pneumonia due to Pseudomonas (principal); J96.22 Acute and chronic respiratory failure with hypercapnia; J96.21 Acute and chronic respiratory failure with hypoxia; I50.9 Heart failure, unspecified; G92 Toxic encephalopathy; G82.50 Quadriplegia, unspecified; Z72.0 Tobacco use; Z88.2 Allergy status to sulfonamides; Z88.1 Allergy status to other antibiotic agents; Z88.5 Allergy status to narcotic agent; Z88.8 Allergy status to other drugs, medicaments and biological substances
CPT/HCPCS: 96365; 96368; J0713; J0878

== ENCOUNTER 2020-04-27 03:44 | Day surgery (SDC) | payer MEDICARE ==
[2020-06-14] MEDS ORDERED: OXYC5 PO (08:29)
[2020-06-14] MEDS ORDERED: CLIN150 PO (08:30)
[2020-06-14] MEDS ORDERED: MUPIROCIN22 G2 TOP (12:39)
[2020-06-14] MEDS ORDERED: MOBIC15 MG PO (12:41)
== END 2020-04-27 17:24 | disposition home or self-care (01) ==
LOC: ATC 03:44
DX: A49.02 Methicillin resistant Staphylococcus aureus infection, unspecified site (principal); Z93.1 Gastrostomy status; G82.50 Quadriplegia, unspecified; Z88.1 Allergy status to other antibiotic agents; Z88.5 Allergy status to narcotic agent; Z88.2 Allergy status to sulfonamides; Z88.8 Allergy status to other drugs, medicaments and biological substances; Z96.651 Presence of right artificial knee joint; Z93.0 Tracheostomy status
CPT/HCPCS: 96365; 96368; J0878

== ENCOUNTER 2020-04-28 02:22 | Day surgery (SDC) | payer MEDICARE ==
[2020-06-14] MEDS ORDERED: OXYC5 PO (08:29)
[2020-06-14] MEDS ORDERED: CLIN150 PO (08:30)
[2020-06-14] MEDS ORDERED: MUPIROCIN22 G2 TOP (12:39)
[2020-06-14] MEDS ORDERED: MOBIC15 MG PO (12:41)
== END 2020-04-28 16:41 | disposition home or self-care (01) ==
LOC: ATC 02:22
DX: J15.1 Pneumonia due to Pseudomonas (principal); J96.22 Acute and chronic respiratory failure with hypercapnia; J96.21 Acute and chronic respiratory failure with hypoxia; I50.9 Heart failure, unspecified; G92 Toxic encephalopathy; G82.50 Quadriplegia, unspecified; Z72.0 Tobacco use; Z88.5 Allergy status to narcotic agent; Z88.1 Allergy status to other antibiotic agents; Z88.2 Allergy status to sulfonamides; Z88.8 Allergy status to other drugs, medicaments and biological substances; Z20.822 Contact with and (suspected) exposure to COVID-19
CPT/HCPCS: 96365; 96368; J0713; J0878

== ENCOUNTER → 2020-06-06 | Outpatient (CLI) | payer MEDICARE ==
[~2020-06-06] MED LIST changes: +CLIN150 PO; +MOBIC15 MG PO; +MUPIROCIN22 G2 TOP
== END | disposition home or self-care (01) ==
LOC: LAB 14:24 → LAB SHORT 14:24
DX: L08.0 Pyoderma (principal)
CPT/HCPCS: 87070; 87077; 87147; 87186; 87205

== ENCOUNTER 2020-06-13 01:10 | Emergency (ER) | payer MEDICARE ==
[~2020-06-13] VITALS: Ht 165.1 cm; Wt 45.4 kg
[~2020-06-13 01:10] MED LIST changes: -CLIN150 PO; -MOBIC15 MG PO; -MUPIROCIN22 G2 TOP
[2020-06-14] MEDS ORDERED: OXYC5 PO (08:29)
[2020-06-14] MEDS ORDERED: CLIN150 PO (08:30)
[2020-06-14] MEDS ORDERED: MUPIROCIN22 G2 TOP (12:39)
[2020-06-14] MEDS ORDERED: MOBIC15 MG PO (12:41)
== END 2020-06-13 02:00 | disposition home or self-care (01) ==
LOC: ER 01:10
DX: R06.02 Shortness of breath (principal); Z88.5 Allergy status to narcotic agent; Z88.2 Allergy status to sulfonamides; Z88.3 Allergy status to other anti-infective agents; Z88.1 Allergy status to other antibiotic agents; Z79.899 Other long term (current) drug therapy
CPT/HCPCS: 31720; 99283-25; J2405; J7030